=== PATIENT | female | born 1955 | race Caucasian/White ===

== ENCOUNTER 2018-06-11 12:23 | Inpatient (IN) | payer BC, SELFPAY ==
[2018-06-11] VITALS (20 sets, daily range): BP systolic 114–159; BP diastolic 65–109; PULSE 85–106; RESP 17–29; TEMP 36.4–37; O2SAT 92–100; BMI 25.7
--- NOTE | 2018-06-11 12:37 | DI.RAD.S_ITS ---
PROCEDURE: XR CHEST 1V INDICATIONS: sob TECHNIQUE: One view of the chest was acquired. COMPARISON: [facility], , CHEST 1 VIEW, 03/21/2017, 6:00. FINDINGS: Surgical changes and devices: None. Lungs and pleura: Previously seen left apical pneumothorax has resolved in the interim. However, there is developing interstitial and alveolar prominence within the perihilar regions of the lung bases. No lobar consolidation or large effusion is evident. Mediastinum: Mediastinal contours appear normal. Heart size is normal. Bones and chest wall: No suspicious bony lesions. Overlying soft tissues appear unremarkable. IMPRESSION: 1. Increasing infrahilar densities is suspicious for pneumonia versus pulmonary edema. Please correlate clinically. 2. Left apical pneumothorax appears to have resolved. Dictated by: Jamaal Burris M.D. on 06/11/2018 at 11:52 Approved by: Jamaal Burris M.D. on 06/11/2018 at 11:57
--- NOTE | 2018-06-11 12:39 | PC.NURSE ---
Pt brought from triage to room 4. Sat 74% on room air. 100% non rebreather placed.
--- NOTE | 2018-06-11 13:03 | PC.NURSE ---
Pt denies lower extremity pain / swelling. Denies chest pain/arm pain/jaw pain. Denies nausea / vomiting. states no h/o hypercoagulopathy or PE/DVT for self or family. Weaned to 4L nc. RR continues @ 28, sat 90%. Increased to 6L NC. States she feels more comfortable.
[2018-06-11 13:09] LABS: Add Manual Diff / Slide Review NO; Basophils Absolute Auto 100 /uL (0-100); Eosinophils Absolute Auto 400 /uL (0-450); Eosinophils Percent Auto 3.4 % (2-4); Hematocrit 38.7 % (36-46); Hemoglobin 12.9 g/dL (12.0-16.0); Lymphocytes Absolute Auto 1600 /uL (1100-4500); Lymphocytes Percent Auto 12.6 % (25-40); Mean Corpuscular HGB Conc 33.4 % (30-36); Mean Corpuscular Hemoglobin 34.6 PG (26-34); Mean Corpuscular Volume 103.6 fL (80-100); Monocytes Absolute Auto 1100 /uL (0-900); Neutrophils Absolute Auto 9200 /uL (1500-7000); Platelet Count 442 X10^3/uL (150-400); Red Blood Cell Count 3.74 X10^6/uL (4.0-5.2); Red Cell Distribution Width 13.7 % (11.6-14.8); White Blood Cell Count 12.4 X10^3/uL (4.5-11.0)
[2018-06-11 13:25] LABS: Alanine Aminotransferase 16 IU/L (9-52); Albumin 4.2 g/dL (3.5-5.0); Albumin Globulin Ratio 1.1 (1.0-2.8); Alkaline Phosphatase 80 U/L (38-126); Aspartate Aminotransferase 48 IU/L (14-36); BUN Creatinine Ratio 15.7 (6-22); Bilirubin Total 0.6 mg/dL (0.2-1.3); Blood Urea Nitrogen 11 mg/dL (7-17); Calcium 9.1 mg/dL (8.4-10.2); Carbon Dioxide 24 mmol/L (22-32); Chloride 100 mmol/L (98-107); Creatine Kinase 25 U/L (30-135); Estimated Glomerular Filt Rate > 60.0 mL/min (>60); Globulin 3.7 g/dL (1.7-4.1); Glucose 104 mg/dL (80-110); HEMOLYSIS < 15 (0-50); Potassium 4.1 mmol/L (3.4-5.1); Sodium 135 mmol/L (137-145); Total Protein 7.9 g/dL (6.3-8.2)
[2018-06-11 13:26] LABS: Lactate (Lactic Acid) 1.3 mmol/L (0.7-2.1)
--- NOTE | 2018-06-11 13:28 | ED.SOB ---
HPI - SOB/Dyspnea General Chief Complaint: Shortness of Breath/Dyspnea Stated Complaint: says hard time breathing x5 days Time Seen by Provider: 06/11/18 13:26 Source: patient and family Mode of arrival: ambulatory Limitations: no limitations History of Present Illness This is a 63-year-old female comes to the emergency department with complaint of shortness of breath. Patient states symptoms have been going on for about 5 days maybe a little bit longer. She states sort of sudden onset. She states normally she walks up and down the stairs in her home which are full flight about 14 times a day. She states today she has to stop at the landing to try to recover and it takes a while. Patient denies any chest pain, she denies any syncope. No lightheadedness. No diarrhea or constipation. She has had a little dysuria and urgency today which just started. She denies any swelling in her lower extremities. She does take blood pressure medication, she takes Estratest as well as Wellbutrin which she started recently for tobacco cessation. She has been smoking about 2 cigarettes a day for the last 6 weeks and stop smoking any cigarettes for 5 days ago. She denies any past family history of cardiac, pulmonary, embolic disease. Related Data Home Medications Medication Instructions Recorded Confirmed acetaminophen 1 dose PO PRN PRN 06/11/18 06/11/18 amlodipine [Norvasc] 5 mg PO DAILY 06/11/18 06/11/18 estrogens-methyltestosterone 1 tab PO DAILY 06/11/18 06/11/18 [Covaryx H.S.] hydrocodone-acetaminophen 0.5 - 1 tab PO Q8H PRN 06/11/18 06/11/18 Previous Rx's Medication Instructions Recorded atenolol 50 mg tablet 50 mg PO DAILY #90 tab 08/24/17 ipratropium bromide 17 1 puff INHALATION QID PRN #38.7 08/24/17 mcg/actuation HFA aerosol inhaler gram bupropion HCl 100 mg tablet 100 mg PO BID #180 tab 01/23/18 Allergies Allergy/AdvReac Type Severity Reaction Status Date / Time Penicillins [PENICILLINS] Allergy Unknown Verified 06/11/18 12:37 aspirin [ASPIRIN] AdvReac Mild GI Verified 06/11/18 12:37 TEGADERM Allergy Mild SKIN Uncoded 01/23/18 16:28 REDNESS PAIN CONTRACT Allergy Unknown Uncoded 01/23/18 16:28 Review of Systems Review of Systems ROS Unobtainable: All systems reviewed & are unremarkable except as noted in HPI and below Constitutional Denies chills, Denies fever(s), Denies lethargy and Denies weakness Cardiovascular Denies chest pain, Denies syncope, Denies pedal edema, Denies edema, Denies irregular heart rhythm, Denies lightheadedness, Denies radiating jaw, neck or arm pain, Denies palpitations, Reports dyspnea, Reports dyspnea on exertion and Denies orthopnea Respiratory Denies change in phlegm color, Denies chest congestion, Denies cough, Denies excessive phlegm production, Denies pain on inspiration, Denies pain with cough, Reports dyspnea, Reports dyspnea on exertion and Denies wheezing Gastrointestinal Gastrointestinal: Denies abdominal pain, Denies change in bowel habits, Denies diarrhea, Denies nausea and Denies vomiting Genitourinary Denies hematuria, Reports urinary frequency, Reports dysuria, Denies flank pain, Denies urinary incontinence and Reports urinary urgency Musculoskeletal Denies back pain Neurologic Denies syncope and Denies weakness Endocrine Denies palpitations Allergic/Immunologic Denies wheezing [facility] Medical History Pulmonary fibrosis (Suspected) Chronic obstructive pulmonary disease (Chronic 10/29/13) Hypertension (Chronic ~2003) Hyperlipidemia with target LDL less than 100 (Chronic 10/29/13) Menopause present (Chronic 10/29/13) Lumbar back pain (Chronic) Degeneration of intervertebral disc of lumbar region (Chronic 03/23/15) Tobacco use disorder (Chronic 02/24/11) Chronic back pain (Chronic ~1999) Headache (Chronic ~1989) Migraines (Chronic ~1989) Pneumothorax (Chronic ~03/20/17) Surgical History Anesthesia (Resolved) History of hysterectomy, supracervical (Resolved ~2004) Social History Smoking Status: Current every day smoker Social History household members: spouse Smoking Status: Former smoker Exam Narrative Exam Narrative: GEN: well nourished, well appearing female, alert and oriented x 3, patient appears to be in mild distress. HEENT: Atraumatic, pupils are equal round reactive to light, extraocular movements are intact, nares are clear, Throat is clear without any exudates, erythema, tonsillar enlargement or uvular deviation HEART: Regular rate and rhythm without murmur, clicks, rubs. Pulses are equal in upper and lower extremities LUNGS:Lungs show breath sounds equal bilaterally, no wheezes, positive bilateral rales in both bases, no crackles, chest moves symmetrically, no tachypnea, no accessory muscle use while sitting in bed. ABD:bowel sounds normal, soft, non-tender, no guarding, rebound, rigidity, no masses noted, no hepatosplenomegaly :No CVA tenderness MSCL: Non-tender, no muscle atrophy, muscles strength 5/5 upper and lower extremities, full range of motion, normal gait NEURO:CN 2-12 intact, sensation normal Initial Vital Signs Initial Vital Signs: Vital Signs Pulse Oximetry 100 06/11/18 12:40 Course Orders Ordered: ED Orders 06/11/18 12:37 Consult to Respiratory Therapy Evaluate & Treat XR chest 1V Stat 06/11/18 12:38 EKG-12 Lead Stat 06/11/18 12:55 BNP [B Type Natriuretic Peptide] Stat Complete Blood Count AUTO DIFF Stat Comprehensive Metabolic Panel Stat Lactate (Lactic Acid) Stat Troponin & CK Cardiac Panel Stat 06/11/18 13:30 FLU A and B [Influenza A and B by PCR Rapid] Stat 06/11/18 14:42 CT angio chest PE protocol Stat 06/11/18 15:41 Urine Culture Stat Urine Microscopic Stat 06/11/18 17:43 Education, smoking cessation ONGOING Acetaminophen (Tylenol) 650 mg PO Q6HR PRN PRN Reason: As Needed for Fever/Mild Pain Hydrocodone Bitart/Acetaminophen ([place] 10/325) 1 tab PO Q4HR PRN PRN Reason: Pain, Moderate (4-6) Albuterol/Ipratropium (Duoneb) 3 ml INH [id number] GLENN Atenolol (Tenormin) 50 mg PO DAILY GLENN Bisacodyl (Dulcolax) 10 mg PO DAILY PRN PRN Reason: Constipation Bupropion HCl (Welbutrin) 100 mg PO BID GLENN Enoxaparin Sodium (Lovenox) 40 mg SUBCUT DAILY [facility] Dextrose/Sodium Chloride (Dextrose 5%-0.45% Ns) 1,000 mls @ 80 mls/hr IV CONT GLENN Last Admin: 06/11/18 18:56 Dose: 80 mls/hr Levofloxacin (Levaquin) 750 mg in 150 mls @ 100 mls/hr IV Q24H [facility] Ipratropium [place] (Atrovent Hfa) 1 puff INH QID PRN PRN Reason: shortness of breath or wheezing Methylprednisolone (Solu-Medrol 125 Mg Vial) 60 mg IV Q12H [facility] Stop: 06/16/18 17:42 Last Admin: 06/11/18 18:56 Dose: 60 mg Non-Formulary Medication (Estrogens-Methyltestosterone [Covaryx H.S.]) 1 tab PO DAILY [facility] Zolpidem Tartrate (Ambien) 5 mg PO BEDTIME PRN PRN Reason: Sleep Discontinued Medications Hydrocodone Bitart/Acetaminophen ([place] 10/325) 1 tab PO NOW ONE Stop: 06/11/18 16:08 Last Admin: 06/11/18 17:00 Dose: 1 tab Levofloxacin (Levaquin) 750 mg in 150 mls @ 100 mls/hr IV NOW ONE Stop: 06/11/18 17:36 Last Infusion: 06/11/18 17:26 Dose: 100 mls/hr Infusion: 06/11/18 17:25 Dose: 100 mls/hr Admin: 06/11/18 16:55 Dose: 100 mls/hr Vital Signs - 8 hr 06/11/18 12:40 06/11/18 12:41 06/11/18 12:45 Temperature Pulse Rate 88 86 Respiratory Rate 25 H 27 H Blood Pressure Blood Pressure [Left Arm] 150/87 H 150/87 H Pulse Oximetry 100 100 100 06/11/18 12:58 06/11/18 13:05 06/11/18 13:15 Temperature Pulse Rate 90 86 Respiratory Rate 28 H 28 H 24 Blood Pressure Blood Pressure [Left Arm] 114/65 123/65 Pulse Oximetry 94 92 93 06/11/18 13:30 06/11/18 13:31 06/11/18 14:09 Temperature Pulse Rate 86 86 Respiratory Rate 17 27 H Blood Pressure Blood Pressure [Left Arm] 141/79 H 118/87 Pulse Oximetry 93 92 95 06/11/18 14:15 06/11/18 14:30 06/11/18 15:30 Temperature Pulse Rate 85 89 95 H Respiratory Rate 26 H 23 23 Blood Pressure Blood Pressure [Left Arm] 120/71 123/75 Pulse Oximetry 93 92 95 06/11/18 16:00 06/11/18 16:30 06/11/18 17:00 Temperature Pulse Rate 92 H 98 H 90 Respiratory Rate 29 H 29 H 18 Blood Pressure Blood Pressure [Left Arm] Pulse Oximetry 93 94 94 06/11/18 17:19 06/11/18 17:40 Temperature 98.6 F Pulse Rate 96 H 106 H Respiratory Rate 20 20 Blood Pressure 159/109 H Blood Pressure [Left Arm] Pulse Oximetry 94 93 MDM - SOB/Dyspnea Lab Data Attestation: I reviewed the patient's lab results. Result diagrams: 06/11/18 12:55 06/11/18 12:55 Lab Results 06/11/18 06/11/18 06/11/18 Range/Units 12:55 12:55 12:55 WBC 12.4 H (4.5-11.0) X10^3/uL RBC 3.74 L (4.0-5.2) X10^6/uL Hgb 12.9 (12.0-16.0) g/dL Hct 38.7 (36-46) % MCV 103.6 H (80-100) fL MCH 34.6 H (26-34) PG MCHC 33.4 (30-36) % RDW 13.7 (11.6-14.8) % Plt Count 442 H (150-400) X10^3/uL Neut % (Auto) 74.0 (50-75) % Lymph % (Auto) 12.6 L (25-40) % [place] % (Auto) 9.0 (3-14) % Eos % (Auto) 3.4 (2-4) % Baso % (Auto) 1.0 (0-2) % Neut # (Auto) 9200 H (5281-7818) /uL Lymph # (Auto) 1600 (7855-7162) /uL [place] # (Auto) 1100 H (0-900) /uL Eos # (Auto) 400 (0-450) /uL Baso # (Auto) 100 (0-100) /uL Sodium 135 L (137-145) mmol/L Potassium 4.1 (3.4-5.1) mmol/L Chloride 100 (98-107) mmol/L Carbon Dioxide 24 (22-32) mmol/L BUN 11 (7-17) mg/dL Creatinine 0.70 (0.52-1.04) mg/dL Estimated GFR > 60.0 (>60) mL/min BUN/Creatinine Ratio 15.7 (6-22) Glucose 104 (80-110) mg/dL Lactate 1.3 (0.7-2.1) mmol/L Calcium 9.1 (8.4-10.2) mg/dL Total Bilirubin 0.6 (0.2-1.3) mg/dL AST 48 H (14-36) IU/L ALT 16 (9-52) IU/L Alkaline Phosphatase 80 (38-126) U/L Total Creatine Kinase (30-135) U/L CK-MB (CK-2) CK-MB (CK-2) Rel Index Troponin I (0.01-0.034) ng/mL B-Natriuretic Peptide (<100) Total Protein 7.9 (6.3-8.2) g/dL Albumin 4.2 (3.5-5.0) g/dL Globulin 3.7 (1.7-4.1) g/dL Albumin/Globulin Ratio 1.1 (1.0-2.8) Urine RBC (0-5/HPF) Urine WBC (0-5/HPF) Urine Bacteria (None) Ur Culture Indicated? Influenza A & B (PCR) (Negative) 06/11/18 06/11/18 06/11/18 Range/Units 12:55 12:55 13:30 WBC (4.5-11.0) X10^3/uL RBC (4.0-5.2) X10^6/uL Hgb (12.0-16.0) g/dL Hct (36-46) % MCV (80-100) fL MCH (26-34) PG MCHC (30-36) % RDW (11.6-14.8) % Plt Count (150-400) X10^3/uL Neut % (Auto) (50-75) % Lymph % (Auto) (25-40) % [place] % (Auto) (3-14) % Eos % (Auto) (2-4) % Baso % (Auto) (0-2) % Neut # (Auto) (9038-9697) /uL Lymph # (Auto) (0835-2955) /uL [place] # (Auto) (0-900) /uL Eos # (Auto) (0-450) /uL Baso # (Auto) (0-100) /uL Sodium (137-145) mmol/L Potassium (3.4-5.1) mmol/L Chloride (98-107) mmol/L Carbon Dioxide (22-32) mmol/L BUN (7-17) mg/dL Creatinine (0.52-1.04) mg/dL Estimated GFR (>60) mL/min BUN/Creatinine Ratio (6-22) Glucose (80-110) mg/dL Lactate (0.7-2.1) mmol/L Calcium (8.4-10.2) mg/dL Total Bilirubin (0.2-1.3) mg/dL AST (14-36) IU/L ALT (9-52) IU/L Alkaline Phosphatase (38-126) U/L Total Creatine Kinase 25 L (30-135) U/L CK-MB (CK-2) TNP CK-MB (CK-2) Rel Index TNP Troponin I < 0.012 (0.01-0.034) ng/mL B-Natriuretic Peptide < 100 (<100) Total Protein (6.3-8.2) g/dL Albumin (3.5-5.0) g/dL Globulin (1.7-4.1) g/dL Albumin/Globulin Ratio (1.0-2.8) Urine RBC (0-5/HPF) Urine WBC (0-5/HPF) Urine Bacteria (None) Ur Culture Indicated? Influenza A & B (PCR) Negative (Negative) 06/11/18 Range/Units 15:41 WBC (4.5-11.0) X10^3/uL RBC (4.0-5.2) X10^6/uL Hgb (12.0-16.0) g/dL Hct (36-46) % MCV (80-100) fL MCH (26-34) PG MCHC (30-36) % RDW (11.6-14.8) % Plt Count (150-400) X10^3/uL Neut % (Auto) (50-75) % Lymph % (Auto) (25-40) % [place] % (Auto) (3-14) % Eos % (Auto) (2-4) % Baso % (Auto) (0-2) % Neut # (Auto) (0726-9731) /uL Lymph # (Auto) (0618-3425) /uL [place] # (Auto) (0-900) /uL Eos # (Auto) (0-450) /uL Baso # (Auto) (0-100) /uL Sodium (137-145) mmol/L Potassium (3.4-5.1) mmol/L Chloride (98-107) mmol/L Carbon Dioxide (22-32) mmol/L BUN (7-17) mg/dL Creatinine (0.52-1.04) mg/dL Estimated GFR (>60) mL/min BUN/Creatinine Ratio (6-22) Glucose (80-110) mg/dL Lactate (0.7-2.1) mmol/L Calcium (8.4-10.2) mg/dL Total Bilirubin (0.2-1.3) mg/dL AST (14-36) IU/L ALT (9-52) IU/L Alkaline Phosphatase (38-126) U/L Total Creatine Kinase (30-135) U/L CK-MB (CK-2) CK-MB (CK-2) Rel Index Troponin I (0.01-0.034) ng/mL B-Natriuretic Peptide (<100) Total Protein (6.3-8.2) g/dL Albumin (3.5-5.0) g/dL Globulin (1.7-4.1) g/dL Albumin/Globulin Ratio (1.0-2.8) Urine RBC 5-10/hpf H (0-5/HPF) Urine WBC 5-10/hpf H (0-5/HPF) Urine Bacteria Moderate (10-30) H (None) Ur Culture Indicated? Specimen cultured Influenza A & B (PCR) (Negative) Imaging Data Chest x-ray: Radiologist's impression: [address] [address] XRay Report Signed Patient: Corina Thompson#: [id number] : 1955cct:[id number] Age/Sex: 63 / FDate of Service: 06/11/18 Loc: ED Accession Number: [id number] Procedure: XR chest 1V Ordering Provider: Chantell Pavon D.O. PROCEDURE: XR CHEST 1V INDICATIONS: sob TECHNIQUE: One view of the chest was acquired. COMPARISON: [facility], CR, CHEST 1 VIEW, 03/21/2017, 6:00. FINDINGS: Surgical changes and devices: None. Lungs and pleura: Previously seen left apical pneumothorax has resolved in the interim. However, there is developing interstitial and alveolar prominence within the perihilar regions of the lung bases. No lobar consolidation or large effusion is evident. Mediastinum: Mediastinal contours appear normal. Heart size is normal. Bones and chest wall: No suspicious bony lesions. Overlying soft tissues appear unremarkable. IMPRESSION: 1. Increasing infrahilar densities is suspicious for pneumonia versus pulmonary edema. Please correlate clinically. 2. Left apical pneumothorax appears to have resolved. Dictated by: Jamaal Burris M.D. on 06/11/2018 at 11:52 Approved by: Jamaal Burris M.D. on 06/11/2018 at 11:57 CTA Chest: Radiologist's impression: Corina Thompson 63 F 1955 [place] [address] CT Scan Report Signed Patient: JayCorina R#: [id number] : 7Acct:[id number] Age/Sex: 63 / FDate of Service: 06/11/18 Loc: ED Accession Number: [id number] Procedure: CT angio chest PE protocol Ordering Provider: Chantell Pavon D.O. PROCEDURE: CT ANGIO CHEST PE PROTOCOL INDICATIONS: hypoxia, sudden onset sob x 5 days, crackles bases TECHNIQUE: After the administration of intravenous contrast, 2 mm thick sections acquired from the pulmonary apices to the posterior costophrenic angles. 3-dimensional maximum intensity projection (MIP) coronal and sagittal reformats were then acquired through the thorax. For radiation dose reduction, the following was used: automated exposure control, adjustment of mA and/or kV according to patient size. COMPARISON: [facility], CT, THORAX WITH CONTRAST, 03/24/2017, 13:15. [facility], CT, ABDOMEN/PELVIS WITH CONTRAST, 07/02/2015, 13:20. [facility], CR, XR CHEST 1V, 06/11/2018, 12:42. FINDINGS: Image quality: Excellent. Pulmonary arteries: Pulmonary arteries are normal in size, and demonstrate no intraluminal filling defects to suggest central pulmonary embolism. Lungs and pleura: Include groundglass opacities with basilar predominance noted. Interstitial thickening noted in the lung bases bilaterally. Bibasilar alveolar opacities. No pleural effusions or pneumothorax. Central and peripheral airways are patent. Mediastinum: Heart size is normal, without pericardial effusion. Atherosclerotic calcifications are noted in the aorta, great vessels and the coronary vasculature. No mediastinal or hilar adenopathy. Thoracic aorta is normal in caliber and enhancement. The left vertebral artery arises from the aortic arch. Esophagus is normal in caliber, without hiatal hernia. Bones and chest wall: No suspicious bony lesions. Ribs and thoracic spine appear intact throughout. Thyroid gland is within normal limits the visualized. No axillary or supraclavicular adenopathy. Abdomen: Visualized upper abdominal solid organs appear normal in the early arterial phase of enhancement. IMPRESSION: 1. No pulmonary embolus. 2. Bilateral lung groundglass opacities, interstitial thickening and bibasilar alveolar opacities. Findings may be related to pulmonary edema versus atypical pneumonia. Dictated by: Lisa Cunningham MD, PhD on 06/11/2018 at 15:06 Approved by: Lisa Cunningham MD, PhD on 06/11/2018 at 15:11 ECG Data Attestation: I personally reviewed and interpreted this ECG as follows: Interpretation: Sinus rhythm with a rate 85 P are interval 170 QRS of 90 and QTC of 386. No ST elevation or depression. MDM Narrative Medical decision making narrative: Patient has hypoxia on exam initially when she arrives and dropped down to into the 70s while ambulating. Patient's chest x-ray shows possible pneumonia versus pulmonary edema her white count is elevated at 12.4. She does not have any anemia, electrolytes are normal except for a 135 sodium, she has an AST that is 48, total CK is 25 with a troponin that is negative, BNP is less than 100. Patient does have rales bilaterally in her bases. No wheezing on exam. Influenza was negative. patient did have CTA ordered as she described her shortness of breath as sudden in onset. PE protocol shows no pulmonary emboli with ground-glass opacities with basilar predominance, some interstitial thickening in the lung bases bilaterally and some bibasilar alveolar opacities. Of her radiology read could be related to pulmonary edema versus atypical pneumonia. I suspect patient has more of an atypical pneumonia was given a dose of antibiotics. Spoke with Dr. Pang who will evaluate the patient and plan for observation since she is requiring oxygen. Discharge Plan Departure Patient Disposition: Admitted as Observation Clinical Impression: Pneumonia, Tobacco use disorder Discharge Date/Time: 06/11/18 17:27 Interventions: ED Discharge Assessment Last Done: 06/11/18 17:14 Admit Date/Time: 06/11/18 16:57 Admit Provider: Prasad Pang
[2018-06-11 13:37] LABS: Troponin I < 0.012 ng/mL (0.01-0.034)
--- NOTE | 2018-06-11 13:37 | ED_ITS ---
HPI - SOB/Dyspnea General Chief Complaint: Shortness of Breath/Dyspnea Stated Complaint: says hard time breathing x5 days Time Seen by Provider: 06/11/18 13:26 Source: patient and family Mode of arrival: ambulatory Limitations: no limitations History of Present Illness This is a 63-year-old female comes to the emergency department with complaint of shortness of breath. Patient states symptoms have been going on for about 5 days maybe a little bit longer. She states sort of sudden onset. She states normally she walks up and down the stairs in her home which are full flight about 14 times a day. She states today she has to stop at the landing to try to recover and it takes a while. Patient denies any chest pain, she denies any s yncope. No lightheadedness. No diarrhea or constipation. She has had a little dysuria and urgency today which just started. She denies any swelling in her lower extremities. She does take blood pressure medication, she takes Estratest as well as Wellbutrin which she started recently for tobacco cessation. She has been smoking about 2 cigarettes a day for the last 6 weeks and stop smoking any cigarettes for 5 days ago. She denies any past family history of cardiac, pulmonary, embolic disease. Related Data Home Medications Medication Instructions Recorded Confirmed acetaminophen 1 dose PO PRN PRN 06/11/18 06/11/18 amlodipine [Norvasc] 5 mg PO DAILY 06/11/18 06/11/18 estrogens-methyltestosterone 1 tab PO DAILY 06/11/18 06/11/18 [Covaryx H.S.] hydrocodone-acetaminophen 0.5 - 1 tab PO Q8H PRN 06/11/18 06/11/18 Previous Rx's Medication Instructions Recorded atenolol 50 mg tablet 50 mg PO DAILY #90 tab 08/24/17 ipratropium bromide 17 1 puff INHALATION QID PRN #38.7 08/24/17 mcg/actuation HFA aerosol inhaler gram bupropion HCl 100 mg tablet 100 mg PO BID #180 tab 01/23/18 Allergies Allergy/AdvReac Type Severity Reaction Status Date / Time Penicillins [PENICILLINS] Allergy Unknown Verified 06/11/18 12:37 aspirin [ASPIRIN] AdvReac Mild GI Verified 06/11/18 12:37 TEGADERM Allergy Mild SKIN Uncoded 01/23/18 16:28 REDNESS PAIN CONTRACT Allergy Unknown Uncoded 01/23/18 16:28 Review of Systems Review of Systems ROS Unobtainable: All systems reviewed & are unremarkable except as noted in HPI and below Constitutional Denies chills, Denies fever(s), Denies lethargy and Denies weakness Cardiovascular Denies chest pain, Denies syncope, Denies pedal edema, Denies edema, Denies irregular heart rhythm, Denies lightheadedness, Denies radiating jaw, neck or arm pain, Denies palpitations, Reports dyspnea, Reports dyspnea on exertion and Denies orthopnea Respiratory Denies change in phlegm color, Denies chest congestion, Denies cough, Denies excessive phlegm production, Denies pain on inspiration, Denies pain with cough, Reports dyspnea, Reports dyspnea on exertion and Denies wheezing Gastrointestinal Gastrointestinal: Denies abdominal pain, Denies change in bowel habits, Denies diarrhea, Denies nausea and Denies vomiting Genitourinary Denies hematuria, Reports urinary frequency, Reports dysuria, Denies flank pain, Denies urinary incontinence and Reports urinary urgency Musculoskeletal Denies back pain Neurologic Denies syncope and Denies weakness Endocrine Denies palpitations Allergic/Immunologic Denies wheezing FOR[facility], [facility] Medical History Pulmonary fibrosis (Suspected) Chronic obstructive pulmonary disease (Chronic 10/29/13) Hypertension (Chronic ~2003) Hyperlipidemia with target LDL less than 100 (Chronic 10/29/13) Menopause present (Chronic 10/29/13) Lumbar back pain (Chronic) Degeneration of intervertebral disc of lumbar region (Chronic 03/23/15) Tobacco use disorder (Chronic 02/24/11) Chronic back pain (Chronic ~1999) Headache (Chronic ~1989) Migraines (Chronic ~1989) Pneumothorax (Chronic ~03/20/17) Surgical History Anesthesia (Resolved) History of hysterectomy, supracervical (Resolved ~2004) Social History Smoking Status: Current every day smoker Social History household members: spouse Smoking Status: Former smoker Exam Narrative Exam Narrative: GEN: well nourished, well appearing female, alert and oriented x 3, patient appears to be in mild distress. HEENT: Atraumatic, pupils are equal round reactive to light, extraocular movements are intact, nares are clear, Throat is clear without any exudates, erythema, tonsillar enlargement or uvular deviation HEART: Regular rate and rhythm without murmur, clicks, rubs. Pulses are equal in upper and lower extremities LUNGS:Lungs show breath sounds equal bilaterally, no wheezes, positive bilateral rales in both bases, no crackles, chest moves symmetrically, no tachypnea, no accessory muscle use while sitting in bed. ABD:bowel sounds normal, soft, non-tender, no guarding, rebound, rigidity, no masses noted, no hepatosplenomegaly :No CVA tenderness MSCL: Non-tender, no muscle atrophy, muscles strength 5/5 upper and lower extremities, full range of motion, normal gait NEURO:CN 2-12 intact, sensation normal Initial Vital Signs Initial Vital Signs: Vital Signs Pulse Oximetry 100 06/11/18 12:40 Course Orders Ordered: ED Orders 06/11/18 12:37 Consult to Respiratory Therapy Evaluate & Treat XR chest 1V Stat 06/11/18 12:38 EKG-12 Lead Stat 06/11/18 12:55 BNP [B Type Natriuretic Peptide] Stat Complete Blood Count AUTO DIFF Stat Comprehensive Metabolic Panel Stat Lactate (Lactic Acid) Stat Troponin & CK Cardiac Panel Stat 06/11/18 13:30 FLU A and B [Influenza A and B by PCR Rapid] Stat 06/11/18 14:42 CT angio chest PE protocol Stat 06/11/18 15:41 Urine Culture Stat Urine Microscopic Stat 06/11/18 17:43 Education, smoking cessation ONGOING Acetaminophen (Tylenol) 650 mg PO Q6HR PRN PRN Reason: As Needed for Fever/Mild Pain Hydrocodone Bitart/Acetaminophen ([place] 10/325) 1 tab PO Q4HR PRN PRN Reason: Pain, Moderate (4-6) Albuterol/Ipratropium (Duoneb) 3 ml INH [id number] GLENN Atenolol (Tenormin) 50 mg PO DAILY GLENN Bisacodyl (Dulcolax) 10 mg PO DAILY PRN PRN Reason: Constipation Bupropion HCl (Welbutrin) 100 mg PO BID GLENN Enoxaparin Sodium (Lovenox) 40 mg SUBCUT DAILY [facility] Dextrose/Sodium Chloride (Dextrose 5%-0.45% Ns) 1,000 mls @ 80 mls/hr IV CONT [facility] Last Admin: 06/11/18 18:56 Dose: 80 mls/hr Levofloxacin (Levaquin) 750 mg in 150 mls @ 100 mls/hr IV Q24H [facility] Ipratropium [place] (Atrovent Hfa) 1 puff INH QID PRN PRN Reason: shortness of breath or wheezing Methylprednisolone (Solu-Medrol 125 Mg Vial) 60 mg IV Q12H [facility] Stop: 06/16/18 17:42 Last Admin: 06/11/18 18:56 Dose: 60 mg Non-Formulary Medication (Estrogens-Methyltestosterone [Covaryx H.S.]) 1 tab PO DAILY [facility] Zolpidem Tartrate (Ambien) 5 mg PO BEDTIME PRN PRN Reason: Sleep Discontinued Medications Hydrocodone Bitart/Acetaminophen ([place] 10/325) 1 tab PO NOW ONE Stop: 06/11/18 16:08 Last Admin: 06/11/18 17:00 Dose: 1 tab Levofloxacin (Levaquin) 750 mg in 150 mls @ 100 mls/hr IV NOW ONE Stop: 06/11/18 17:36 Last Infusion: 06/11/18 17:26 Dose: 100 mls/hr Infusion: 06/11/18 17:25 Dose: 100 mls/hr Admin: 06/11/18 16:55 Dose: 100 mls/hr Vital Signs - 8 hr 06/11/18 12:40 06/11/18 12:41 06/11/18 12:45 Temperature Pulse Rate 88 86 Respiratory Rate 25 H 27 H Blood Pressure Blood Pressure [Left Arm] 150/87 H 150/87 H Pulse Oximetry 100 100 100 06/11/18 12:58 06/11/18 13:05 06/11/18 13:15 Temperature Pulse Rate 90 86 Respiratory Rate 28 H 28 H 24 Blood Pressure Blood Pressure [Left Arm] 114/65 123/65 Pulse Oximetry 94 92 93 06/11/18 13:30 06/11/18 13:31 06/11/18 14:09 Temperature Pulse Rate 86 86 Respiratory Rate 17 27 H Blood Pressure Blood Pressure [Left Arm] 141/79 H 118/87 Pulse Oximetry 93 92 95 04/01/19 14:15 06/11/18 14:30 06/11/18 15:30 Temperature Pulse Rate 85 89 95 H Respiratory Rate 26 H 23 23 Blood Pressure Blood Pressure [Left Arm] 120/71 123/75 Pulse Oximetry 93 92 95 06/11/18 16:00 06/11/18 16:30 06/11/18 17:00 Temperature Pulse Rate 92 H 98 H 90 Respiratory Rate 29 H 29 H 18 Blood Pressure Blood Pressure [Left Arm] Pulse Oximetry 93 94 94 06/11/18 17:19 06/11/18 17:40 Temperature 98.6 F Pulse Rate 96 H 106 H Respiratory Rate 20 20 Blood Pressure 159/109 H Blood Pressure [Left Arm] Pulse Oximetry 94 93 MDM - SOB/Dyspnea Lab Data Attestation: I reviewed the patient's lab results. Result diagrams: 06/11/18 12:55 06/11/18 12:55 Lab Results 06/11/18 06/11/18 06/11/18 Range/Units 12:55 12:55 12:55 WBC 12.4 H (4.5-11.0) X10^3/uL RBC 3.74 L (4.0-5.2) X10^6/uL Hgb 12.9 (12.0-16.0) g/dL Hct 38.7 (36-46) % MCV 103.6 H (80-100) fL MCH 34.6 H (26-34) PG MCHC 33.4 (30-36) % RDW 13.7 (11.6-14.8) % Plt Count 442 H (150-400) X10^3/uL Neut % (Auto) 74.0 (50-75) % Lymph % (Auto) 12.6 L (25-40) % [place] % (Auto) 9.0 (3-14) % Eos % (Auto) 3.4 (2-4) % Baso % (Auto) 1.0 (0-2) % Neut # (Auto) 9200 H (0967-1648) /uL Lymph # (Auto) 1600 (1682-0520) /uL [place] # (Auto) 1100 H (0-900) /uL Eos # (Auto) 400 (0-450) /uL Baso # (Auto) 100 (0-100) /uL Sodium 135 L (137-145) mmol/L Potassium 4.1 (3.4-5.1) mmol/L Chloride 100 (98-107) mmol/L Carbon Dioxide 24 (22-32) mmol/L BUN 11 (7-17) mg/dL Creatinine 0.70 (0.52-1.04) mg/dL Estimated GFR > 60.0 (>60) mL/min BUN/Creatinine Ratio 15.7 (6-22) Glucose 104 (80-110) mg/dL Lactate 1.3 (0.7-2.1) mmol/L Calcium 9.1 (8.4-10.2) mg/dL Total Bilirubin 0.6 (0.2-1.3) mg/dL AST 48 H (14-36) IU/L ALT 16 (9-52) IU/L Alkaline Phosphatase 80 (38-126) U/L Total Creatine Kinase (30-135) U/L CK-MB (CK-2) CK-MB (CK-2) Rel Index Troponin I (0.01-0.034) ng/mL B-Natriuretic Peptide (<100) Total Protein 7.9 (6.3-8.2) g/dL Albumin 4.2 (3.5-5.0) g/dL Globulin 3.7 (1.7-4.1) g/dL Albumin/Globulin Ratio 1.1 (1.0-2.8) Urine RBC (0-5/HPF) Urine WBC (0-5/HPF) Urine Bacteria (None) Ur Culture Indicated? Influenza A & B (PCR) (Negative) 06/11/18 06/11/18 06/11/18 Range/Units 12:55 12:55 13:30 WBC (4.5-11.0) X10^3/uL RBC (4.0-5.2) X10^6/uL Hgb (12.0-16.0) g/dL Hct (36-46) % MCV (80-100) fL MCH (26-34) PG MCHC (30-36) % RDW (11.6-14.8) % Plt Count (150-400) X10^3/uL Neut % (Auto) (50-75) % Lymph % (Auto) (25-40) % [place] % (Auto) (3-14) % Eos % (Auto) (2-4) % Baso % (Auto) (0-2) % Neut # (Auto) (5995-2266) /uL Lymph # (Auto) (1912-2954) /uL [place] # (Auto) (0-900) /uL Eos # (Auto) (0-450) /uL Baso # (Auto) (0-100) /uL Sodium (137-145) mmol/L Potassium (3.4-5.1) mmol/L Chloride (98-107) mmol/L Carbon Dioxide (22-32) mmol/L BUN (7-17) mg/dL Creatinine (0.52-1.04) mg/dL Estimated GFR (>60) mL/min BUN/Creatinine Ratio (6-22) Glucose (80-110) mg/dL Lactate (0.7-2.1) mmol/L Calcium (8.4-10.2) mg/dL Total Bilirubin (0.2-1.3) mg/dL AST (14-36) IU/L ALT (9-52) IU/L Alkaline Phosphatase (38-126) U/L Total Creatine Kinase 25 L (30-135) U/L CK-MB (CK-2) TNP CK-MB (CK-2) Rel Index TNP Troponin I < 0.012 (0.01-0.034) ng/mL B-Natriuretic Peptide < 100 (<100) Total Protein (6.3-8.2) g/dL Albumin (3.5-5.0) g/dL Globulin (1.7-4.1) g/dL Albumin/Globulin Ratio (1.0-2.8) Urine RBC (0-5/HPF) Urine WBC (0-5/HPF) Urine Bacteria (None) Ur Culture Indicated? Influenza A & B (PCR) Negative (Negative) 06/11/18 Range/Units 15:41 WBC (4.5-11.0) X10^3/uL RBC (4.0-5.2) X10^6/uL Hgb (12.0-16.0) g/dL Hct (36-46) % MCV (80-100) fL MCH (26-34) PG MCHC (30-36) % RDW (11.6-14.8) % Plt Count (150-400) X10^3/uL Neut % (Auto) (50-75) % Lymph % (Auto) (25-40) % [place] % (Auto) (3-14) % Eos % (Auto) (2-4) % Baso % (Auto) (0-2) % Neut # (Auto) (3154-8722) /uL Lymph # (Auto) (7997-7956) /uL [place] # (Auto) (0-900) /uL Eos # (Auto) (0-450) /uL Baso # (Auto) (0-100) /uL Sodium (137-145) mmol/L Potassium (3.4-5.1) mmol/L Chloride (98-107) mmol/L Carbon Dioxide (22-32) mmol/L BUN (7-17) mg/dL Creatinine (0.52-1.04) mg/dL Estimated GFR (>60) mL/min BUN/Creatinine Ratio (6-22) Glucose (80-110) mg/dL Lactate (0.7-2.1) mmol/L Calcium (8.4-10.2) mg/dL Total Bilirubin (0.2-1.3) mg/dL AST (14-36) IU/L ALT (9-52) IU/L Alkaline Phosphatase (38-126) U/L Total Creatine Kinase (30-135) U/L CK-MB (CK-2) CK-MB (CK-2) Rel Index Troponin I (0.01-0.034) ng/mL B-Natriuretic Peptide (<100) Total Protein (6.3-8.2) g/dL Albumin (3.5-5.0) g/dL Globulin (1.7-4.1) g/dL Albumin/Globulin Ratio (1.0-2.8) Urine RBC 5-10/hpf H (0-5/HPF) Urine WBC 5-10/hpf H (0-5/HPF) Urine Bacteria Moderate (10-30) H (None) Ur Culture Indicated? Specimen cultured Influenza A & B (PCR) (Negative) Imaging Data Chest x-ray: Radiologist's impression: [address] [address] XRay Report Signed Patient: Corina ThompsonR#: [id number] : [id number]:[id number] Age/Sex: 63 / FDate of Service: 06/11/18 Loc: ED Accession Number: [id number] Procedure: XR chest 1V Ordering Provider: Chantell Pavon D.O. PROCEDURE: XR CHEST 1V INDICATIONS: sob TECHNIQUE: One view of the chest was acquired. COMPARISON: [facility], CR, CHEST 1 VIEW, 03/21/2017, 6:00. FINDINGS: Surgical changes and devices: None. Lungs and pleura: Previously seen left apical pneumothorax has resolved in the interim. However, there is developing interstitial and alveolar prominence within the perihilar regions of the lung bases. No lobar consolidation or large effusion is evident. Mediastinum: Mediastinal contours appear normal. Heart size is normal. Bones and chest wall: No suspicious bony lesions. Overlying soft tissues appear unremarkable. IMPRESSION: 1. Increasing infrahilar densities is suspicious for pneumonia versus pulmonary edema. Please correlate clinically. 2. Left apical pneumothorax appears to have resolved. Dictated by: Jamaal Burris M.D. on 06/11/2018 at 11:52 Approved by: Jamaal Burris M.D. on 06/11/2018 at 11:57 CTA Chest: Radiologist's impression: Corina Thompson 63 F 1955 [place] [address] CT Scan Report Signed Patient: Jay,Corina R#: [id number] : [id number]:[id number] Age/Sex: 63 / FDate of Service: 06/11/18 Loc: ED Accession Number: [id number] Procedure: CT angio chest PE protocol Ordering Provider: Chantell Pavon D.O. PROCEDURE: CT ANGIO CHEST PE PROTOCOL INDICATIONS: hypoxia, sudden onset sob x 5 days, crackles bases TECHNIQUE: After the administration of intravenous contrast, 2 mm thick sections acquired from the pulmonary apices to the posterior costophrenic angles. 3-dimensional maximum intensity projection (MIP) coronal and sagittal reformats were then acquired through the thorax. For radiation dose reduction, the following was used: automated exposure control, adjustment of mA and/or kV according to patient size. COMPARISON: [facility], CT, THORAX WITH CONTRAST, 03/24/2017, 13:15. [facility], CT, ABDOMEN/PELVIS WITH CONTRAST, 07/02/2015, 13:20. [facility], CR, XR CHEST 1V, 06/11/2018, 12:42. FINDINGS: Image quality: Excellent. Pulmonary arteries: Pulmonary arteries are normal in size, and demonstrate no intraluminal filling defects to suggest central pulmonary embolism. Lungs and pleura: Include groundglass opacities with basilar predominance noted. Interstitial thickening noted in the lung bases bilaterally. Bibasilar alveolar opacities. No pleural effusions or pneumothorax. Central and peripheral airways are patent. Mediastinum: Heart size is normal, without pericardial effusion. Atherosclerotic calcifications are noted in the aorta, great vessels and the coronary vasculature. No mediastinal or hilar adenopathy. Thoracic aorta is normal in caliber and enhancement. The left vertebral artery arises from the aortic arch. Esophagus is normal in caliber, without hiatal hernia. Bones and chest wall: No suspicious bony lesions. Ribs and thoracic spine appear intact throughout. Thyroid gland is within normal limits the visualized. No axillary or supraclavicular adenopathy. Abdomen: Visualized upper abdominal solid organs appear normal in the early arterial phase of enhancement. IMPRESSION: 1. No pulmonary embolus. 2. Bilateral lung groundglass opacities, interstitial thickening and bibasilar alveolar opacities. Findings may be related to pulmonary edema versus atypical pneumonia. Dictated by: Lisa Cunningham MD, PhD on 06/11/2018 at 15:06 Approved by: Lisa Cunningham MD, PhD on 06/11/2018 at 15:11 ECG Data Attestation: I personally reviewed and interpreted this ECG as follows: Interpretation: Sinus rhythm with a rate 85 P are interval 170 QRS of 90 and QTC of 386. No ST elevation or depression. MDM Narrative Medical decision making narrative: Patient has hypoxia on exam initially when she arrives and dropped down to into the 70s while ambulating. Patient's chest x-ray shows possible pneumonia versus pulmonary edema her white count is elevated at 12.4. She does not have any anemia, electrolytes are normal except for a 135 sodium, she has an AST that is 48, total CK is 25 with a troponin that is negative, BNP is less than 100. Patient does have rales bilaterally in her bases. No wheezing on exam. Influenza was negative. patient did have CTA ordered as she described her shortness of breath as sudden in onset. PE protocol shows no pulmonary emboli with ground-glass opacities with basilar predominance, some interstitial thickening in the lung bases bilaterally and some bibasilar alveolar opacities. Of her radiology read could be related to pulmonary edema versus atypical pneumonia. I suspect patient has more of an atypical pneumonia was given a dose of antibiotics. Spoke with Dr. Pang who will evaluate the patient and plan for observation since she is requiring oxygen. Discharge Plan Departure Patient Disposition: Admitted as Observation Clinical Impression: Pneumonia, Tobacco use disorder Discharge Date/Time: 06/11/18 17:27 Interventions: ED Discharge Assessment Last Done: 06/11/18 17:14 Admit Date/Time: 06/11/18 16:57 Admit Provider: Prasad Pang
[2018-06-11 14:13] LABS: Influenza A and B by PCR Rapid Negative (Negative)
[2018-06-11 14:30] LABS: B Type Natriuretic Peptide < 100 (<100)
--- NOTE | 2018-06-11 14:42 | DI.CT.S_ITS ---
PROCEDURE: CT ANGIO CHEST PE PROTOCOL INDICATIONS: hypoxia, sudden onset sob x 5 days, crackles bases TECHNIQUE: After the administration of intravenous contrast, 2 mm thick sections acquired from the pulmonary apices to the posterior costophrenic angles. 3-dimensional maximum intensity projection (MIP) coronal and sagittal reformats were then acquired through the thorax. For radiation dose reduction, the following was used: automated exposure control, adjustment of mA and/or kV according to patient size. COMPARISON: [facility], CT, THORAX WITH CONTRAST, 03/24/2017, 13:15. [facility], CT, ABDOMEN/PELVIS WITH CONTRAST, 07/02/2015, 13:20. [facility], CR, XR CHEST 1V, 06/11/2018, 12:42. FINDINGS: Image quality: Excellent. Pulmonary arteries: Pulmonary arteries are normal in size, and demonstrate no intraluminal filling defects to suggest central pulmonary embolism. Lungs and pleura: Include groundglass opacities with basilar predominance noted. Interstitial thickening noted in the lung bases bilaterally. Bibasilar alveolar opacities. No pleural effusions or pneumothorax. Central and peripheral airways are patent. Mediastinum: Heart size is normal, without pericardial effusion. Atherosclerotic calcifications are noted in the aorta, great vessels and the coronary vasculature. No mediastinal or hilar adenopathy. Thoracic aorta is normal in caliber and enhancement. The left vertebral artery arises from the aortic arch. Esophagus is normal in caliber, without hiatal hernia. Bones and chest wall: No suspicious bony lesions. Ribs and thoracic spine appear intact throughout. Thyroid gland is within normal limits the visualized. No axillary or supraclavicular adenopathy. Abdomen: Visualized upper abdominal solid organs appear normal in the early arterial phase of enhancement. IMPRESSION: 1. No pulmonary embolus. 2. Bilateral lung groundglass opacities, interstitial thickening and bibasilar alveolar opacities. Findings may be related to pulmonary edema versus atypical pneumonia. Dictated by: Lisa Cunningham MD, PhD on 06/11/2018 at 15:06 Approved by: Lisa Cunningham MD, PhD on 06/11/2018 at 15:11
[2018-06-11 16:03] LABS: Bacteria Urine Moderate (10-30); Culture Indicated Urine Specimen Cultured; RBC Urine 5-10/HPF (0-5/HPF); WBC Urine 5-10/HPF (0-5/HPF)
[2018-06-11] MEDS: levoFLOXacin 750 MG/150 ML PIGGYBACK 100 MG IV (16:55)
[2018-06-11] MEDS: HYDROCODONE/ACET 10/325 TABLET 1 TAB PO ×2 (17:00→21:05)
--- NOTE | 2018-06-11 17:27 | P.HP_ITS ---
History of Present Illness Date Patient Seen: 06/11/18 Time Patient Seen: 17:20 Chief complaint: says hard time breathing x5 days Narrative: Patient presented with shortness of breath about 5 days duration. She reports rather sudden onset. She is noticing this with activity and maybe slightly at rest. Denies any other symptoms including fever chills cough etc. She recently tried to quit smoking as well has currently just started Wellbutrin for this purpose. Does have a history of chronic lung disease with evidence of atypical pneumonia/pulmonary fibrosis in March 2017 (on [address]). Has felt to have COPD and has chronically used inhalers but has not had any breathing test recently. Was an active smoker until 5 days ago, as above. Patient History Medical History Pulmonary fibrosis (Suspected) Chronic obstructive pulmonary disease (Chronic 10/29/13) Hypertension (Chronic ~2003) Hyperlipidemia with target LDL less than 100 (Chronic 10/29/13) Menopause present (Chronic 10/29/13) Lumbar back pain (Chronic) Degeneration of intervertebral disc of lumbar region (Chronic 03/23/15) Tobacco use disorder (Chronic 02/24/11) Chronic back pain (Chronic ~1999) Headache (Chronic ~1989) Migraines (Chronic ~1989) Pneumothorax (Chronic ~03/20/17) Surgical History Anesthesia (Resolved) History of hysterectomy, supracervical (Resolved ~2004) Social History Smoking Status: Current every day smoker Family & Social History Safety & Behavioral: Feels Safe in Current Yes Environment Been Physically Hurt or No Threatened By a Person Tobacco & Substance use: Smoking Status Current every day smoker alcohol intake frequency 0-2 drinks per day Substance Use Type does not use Meds Home Medications Medication Instructions Recorded Confirmed Type atenolol 50 mg tablet 50 mg PO DAILY #90 tab 08/24/17 06/11/18 Rx ipratropium bromide 17 1 puff INHALATION QID PRN #38.7 08/24/17 06/11/18 Rx mcg/actuation HFA aerosol inhaler gram bupropion HCl 100 mg tablet 100 mg PO BID #180 tab 01/23/18 06/11/18 Rx acetaminophen 1 dose PO PRN PRN 06/11/18 06/11/18 History amlodipine [Norvasc] 5 mg PO DAILY 06/11/18 06/11/18 History estrogens-methyltestosterone 1 tab PO DAILY 06/11/18 06/11/18 History [Covaryx H.S.] hydrocodone-acetaminophen 0.5 - 1 tab PO Q8H PRN 06/11/18 06/11/18 History Allergies Allergy/AdvReac Type Severity Reaction Status Date / Time Penicillins [PENICILLINS] Allergy Unknown Verified 06/11/18 12:37 aspirin [ASPIRIN] AdvReac Mild GI Verified 06/11/18 12:37 TEGADERM Allergy Mild SKIN Uncoded 01/23/18 16:28 REDNESS PAIN CONTRACT Allergy Unknown Uncoded 01/23/18 16:28 Review of Systems Constitutional Constitutional: Denies excessive sweating, Denies fever(s), Denies headache(s), Denies weakness, Denies weight gain and Denies weight loss Eyes Eyes: Denies change in vision, Denies itchy eyes, Denies loss of vision and Denies other visual disturbances ENT Ears, Nose, Mouth, and Throat: No difficulty swallowing, No headache(s) and No neck pain Cardiovascular Cardiovascular: Denies chest pain, Denies fainting, Denies fast heart rate, Denies irregular heart rhythm, Denies rapid, pounding, or irregular heartbeat, Reports shortness of breath, Reports shortness of breath with activity and Denies slow heart rate Respiratory Respiratory: Denies chest congestion, Denies cough, Denies pain on inspiration, Reports dyspnea, Reports dyspnea on exertion and Denies wheezing Gastrointestinal Gastrointestinal: Denies abdominal pain, Denies bloating, Denies change in bowel habits, Denies change in stool character, Denies dysphagia, Denies nausea, Denies vomiting and Denies hematemesis Genitourinary Genitourinary: Denies hematuria, Denies urinary frequency and Denies difficulty voiding Musculoskeletal Musculoskeletal: Denies abnormal gait, Denies myalgias, Denies arthralgias, Denies limited range of motion and Denies neck pain Integumentary/Breasts Skin/Breast: Denies bleeding lesions, Denies change in pigmentation, Denies changing lesions, Denies new lesions, Denies rash, Denies skin swelling, Denies sores and Denies jaundice Neurologic Neurologic: Denies abnormal gait, Denies behavioral changes, Denies confusion, Denies syncope, Denies headache(s), Denies loss of vision, Denies memory loss and Denies weakness Psychiatric Psychiatric: Denies behavioral changes, Denies change in appetite, Denies confusion, Denies difficulty concentrating, Denies auditory hallucinations, Denies memory loss, Denies mood swings and Denies suicidal ideation Endocrine Endocrine: Denies excessive sweating and Denies palpitations Hematologic/Lymphatic Hematologic/Lymphatic: Denies easy bleeding, Denies easy bruising and Denies lymphadenopathy Allergic/Immunologic Allergic/Immunologic: Denies itchy eyes and Denies wheezing Exam Vital Signs (past 8 hours): - 06/11/18 12:40 06/11/18 12:41 06/11/18 12:45 Pulse Rate 88 86 Respiratory Rate 25 H 27 H Blood Pressure [Left Arm] 150/87 H 150/87 H Pulse Oximetry 100 100 100 06/11/18 12:58 06/11/18 13:05 06/11/18 13:15 Pulse Rate 90 86 Respiratory Rate 28 H 28 H 24 Blood Pressure [Left Arm] 114/65 123/65 Pulse Oximetry 94 92 93 06/11/18 13:30 06/11/18 13:31 06/11/18 14:09 Pulse Rate 86 86 Respiratory Rate 17 27 H Blood Pressure [Left Arm] 141/79 H 118/87 Pulse Oximetry 93 92 95 06/11/18 14:15 06/11/18 14:30 06/11/18 15:30 Pulse Rate 85 89 95 H Respiratory Rate 26 H 23 23 Blood Pressure [Left Arm] 120/71 123/75 Pulse Oximetry 93 92 95 06/11/18 16:00 06/11/18 16:30 06/11/18 17:00 Pulse Rate 92 H 98 H 90 Respiratory Rate 29 H 29 H 18 Blood Pressure [Left Arm] Pulse Oximetry 93 94 94 06/11/18 17:19 Pulse Rate 96 H Respiratory Rate 20 Blood Pressure [Left Arm] Pulse Oximetry 94 Oxygen Delivery Method Nasal Cannula Oxygen Flow Rate 6 Const General: cooperative, healthy appearing, comfortable, well developed and well groomed Nutritional Appearance: well nourished Orientation: alert, awake and oriented x3 HENMT Head: normocephalic, atraumatic, No cyanosis of lips/distal nose, No raccoon eyes and No periorbital ecchymosis Ears: hearing grossly normal bilaterally and external ears normal Nose: external nose normal and nares normal Face and sinus: normal facial exam and face symmetric Mouth: oral mucosae normal, lip normal and tongue normal Eyes Alignment and Position: alignment normal Periorbital: periorbital findings normal Eyelids: eyelids normal Conjunctivae: conjunctivae normal Sclera: sclerae normal Cornea: corneas normal Pupils: PERRL EOM: EOM intact bilaterally Neck Neck: normal visual inspection, full ROM, trachea midline and No anterior neck swelling Thyroid: not diffusely enlarged Carotids: normal carotid upstroke Lymphatic: No lymphadenopathy Chest Chest: normal inspection of the chest, No crepitus and No tenderness Breast inspection: normal inspection of the breasts Resp Effort & Inspection: normal respiratory effort, able to speak in complete sentences, no audible wheezes, no cough, no retractions and tachypneic Auscultation: no wheezes, no rubs and other (Crackles at the bases bilaterally, very prominent on left less so on right) Percussion: percussion normal Tactile Fremitus: tactile fremitus absent Cardio Palpation: normal PMI Rate: regular rate Rhythm: regular rhythm Heart Sounds: S1 normal, S2 normal and normal, physiologic split S2 Bruits: no carotid bruits Pulses: brachial pulses present and radial pulses present GI Inspection: normal to inspection Palpation: soft and no hepatosplenomegaly Percussion: normal to percussion Auscultation: normal bowel sounds Back/Spine/Pelvis Back: No CVA tenderness Cervical Spine: normal cervical lordosis Thoracic/Lumbar Spine: thoracic and lumbar spine normal to inspection Skin General: no rashes or lesions noted, No excoriations, No induration, No jaundice, No mottling and No petechiae Lesions: no lesions (no worrisome/abl lesions) Rashes: no rashes Trauma: no lacerations or abrasions Wounds: no wounds Hair: normal Neuro General: alert, awake, oriented x3, tone normal and normal light touch, pain and propioception Cranial Nerves: CN's II-XI intact bilaterally Cognition: normal cognition Speech: speech normal Motor: muscle tone normal throughout Sensory Exam: no sensory deficits noted DTR's: Rt Biceps: 2+, Lt Biceps: 2+, Rt Brachioradialis: 2+, Lt Brachioradialis: 2+, Rt Patellar: 2+ and Lt Patellar: 2+ Extrem General: normal to inspection, no clubbing, cyanosis or edema and No calf tenderness Right upper extremity: normal to inspection Left upper extremity: normal to inspection Right lower extremity: normal to inspection Left lower extremity: normal to inspection Psych Appearance: grossly normal Mental Status: mental status grossly normal Speech and Movement: speech and movement normal and speech clear Mood: congruent mood Affect: normal affect Attitude: cooperative Thought Process: normal Thought Content: normal Judgment: judgment good Objective Labs Result Diagrams: 06/11/18 12:55 06/11/18 12:55 Labs: Laboratory Results - last 24 hr 06/11/18 06/11/18 06/11/18 12:55 12:55 12:55 WBC 12.4 H RBC 3.74 L Hgb 12.9 Hct 38.7 MCV 103.6 H MCH 34.6 H MCHC 33.4 RDW 13.7 Plt Count 442 H Neut % (Auto) 74.0 Lymph % (Auto) 12.6 L [place] % (Auto) 9.0 Eos % (Auto) 3.4 Baso % (Auto) 1.0 Neut # (Auto) 9200 H Lymph # (Auto) 1600 [place] # (Auto) 1100 H Eos # (Auto) 400 Baso # (Auto) 100 Sodium 135 L Potassium 4.1 Chloride 100 Carbon Dioxide 24 BUN 11 Creatinine 0.70 Estimated GFR > 60.0 BUN/Creatinine Ratio 15.7 Glucose 104 Lactate 1.3 Calcium 9.1 Total Bilirubin 0.6 AST 48 H ALT 16 Alkaline Phosphatase 80 Total Creatine Kinase CK-MB (CK-2) CK-MB (CK-2) Rel Index Troponin I B-Natriuretic Peptide Total Protein 7.9 Albumin 4.2 Globulin 3.7 Albumin/Globulin Ratio 1.1 Urine RBC Urine WBC Urine Bacteria Ur Culture Indicated? Influenza A & B (PCR) 06/11/18 06/11/18 06/11/18 12:55 12:55 13:30 WBC RBC Hgb Hct MCV MCH MCHC RDW Plt Count Neut % (Auto) Lymph % (Auto) [place] % (Auto) Eos % (Auto) Baso % (Auto) Neut # (Auto) Lymph # (Auto) [place] # (Auto) Eos # (Auto) Baso # (Auto) Sodium Potassium Chloride Carbon Dioxide BUN Creatinine Estimated GFR BUN/Creatinine Ratio Glucose Lactate Calcium Total Bilirubin AST ALT Alkaline Phosphatase Total Creatine Kinase 25 L CK-MB (CK-2) TNP CK-MB (CK-2) Rel Index TNP Troponin I < 0.012 B-Natriuretic Peptide < 100 Total Protein Albumin Globulin Albumin/Globulin Ratio Urine RBC Urine WBC Urine Bacteria Ur Culture Indicated? Influenza A & B (PCR) Negative 06/11/18 15:41 WBC RBC Hgb Hct MCV MCH MCHC RDW Plt Count Neut % (Auto) Lymph % (Auto) [place] % (Auto) Eos % (Auto) Baso % (Auto) Neut # (Auto) Lymph # (Auto) [place] # (Auto) Eos # (Auto) Baso # (Auto) Sodium Potassium Chloride Carbon Dioxide BUN Creatinine Estimated GFR BUN/Creatinine Ratio Glucose Lactate Calcium Total Bilirubin AST ALT Alkaline Phosphatase Total Creatine Kinase CK-MB (CK-2) CK-MB (CK-2) Rel Index Troponin I B-Natriuretic Peptide Total Protein Albumin Globulin Albumin/Globulin Ratio Urine RBC 5-10/hpf H Urine WBC 5-10/hpf H Urine Bacteria Moderate (10-30) H Ur Culture Indicated? Specimen cultured Influenza A & B (PCR) Assessment & Plan Assessment & Plan narrative: 1. Atypical pneumonia in a patient with evidence of pulmonary fibrosis. Her chest CT done today to rule out pulmonary embolism (given the rather sudden onset of symptoms) is quite remarkable for honeycombing type interstitial infiltrate. This was also seen in March 2017 to a much much lesser extent. The degree of patient's underlying chronic lung disease is unkno wn at this time. She does have a slightly elevated white blood cell count and this is most consistent with an atypical pneumonia. I will treat her with IV Levaquin which should be effective against most of the common atypical organisms, as well as appropriate for community-acquired pneumonia. Given what appears to be an underlying element of chronic pulmonary fibrosis I think she would benefit from IV steroid therapy as well. This may be a version of some sort of organizing pneumonia which is less infectious in more inflammatory in nature. The degree of oxygen she is requiring to maintain a more normal oxygen saturation is not surprising given the appearance of her pulmonary parenchyma on CT scan. She clearly will benefit from an outpatient workup for chronic pulmonary disease once she is some improved and discharged. If she does not begin to improve over the next 24-48 hours with steroid therapy I would strongly consider transfer to a tertiary care center where pulmonary medicine is available. In that setting bronchoscopy with BAL etc is rdz to diagnosis. All have respiratory therapy see here and continue with evaluation and treatment. 2. Chronic back pain in opiate dependent patient-will provide patient with hydrocodone here in the hospital. 3. Smoking cessation-patient has already started smoking cessation on her own with the assistance Wellbutrin. Will continue that here in the hospital for now as well. 4. Hypertension-patient's numbers are acceptable at the current time. Will monitor carefully. Overall patient clearly deserves inpatient hospitalization given her significant hypoxia, her need for careful monitoring and evaluation as well as treatment with broad-spectrum IV antibiotics.
[2018-06-11] MEDS: methylPREDNISolone 125 MG/2 ML VIAL 60 MG IV (18:56)
[2018-06-11] MEDS: DEXTROSE 5%-0.45% NS 1,000 ML 80 ML IV (18:56)
[2018-06-11] MEDS: ALBUTEROL/IPRATROPIUM 3 ML AMPUL INH (19:41)
[2018-06-12] VITALS (15 sets, daily range): BP systolic 114–143; BP diastolic 78–95; PULSE 93–114; RESP 15–22; TEMP 36.3–36.8; O2SAT 89–96
[2018-06-12] MEDS: ZOLPIDEM 5 MG TABLET PO ×2 (00:37→23:52)
--- NOTE | 2018-06-12 00:56 | PC.NURSE ---
2300- Pt admit from ED this evening w/ diffuse pneumonia present. Currently on 6L high adriel O2 w/ sats in low 90's. Using BSC as pt gets very SOB w/ exertion & at rest as well. Tele in place SR @ rest & ST w/ exertion. R forearm IV infusing D5 1/2 NS as ordered. Pt is flu negative w/ dry cough present. 0030- Up to BSC very SOB & lips blue. Pt's O2 sats remain at 93% on 6L; back to bed pt normalizes. PO Ambien given as requested. 0400- Up to BSC indep w/ RN present in room. Less SOB this time, no blue lips. Pt seems to be tolerating ambulation better than before.
[2018-06-12] MEDS: ALBUTEROL/IPRATROPIUM 3 ML AMPUL INH ×4 (05:24→19:14)
[2018-06-12] MEDS: methylPREDNISolone 125 MG/2 ML VIAL 60 MG IV ×2 (05:36→17:16)
[2018-06-12] MEDS: HYDROCODONE/ACET 10/325 TABLET 1 TAB PO ×4 (05:36→21:53)
[2018-06-12] MEDS: DEXTROSE 5%-0.45% NS 1,000 ML 80 ML IV ×2 (06:39→20:42)
[2018-06-12] MEDS: buPROPion 100 MG TABLET PO (08:43)
[2018-06-12] MEDS: ENOXAPARIN 40 MG/0.4 ML SYRINGE SUBCUT (08:43)
[2018-06-12] MEDS: ATENOLOL 50 MG TABLET PO (08:43)
--- NOTE | 2018-06-12 09:35 | P.PN_ITS ---
Subjective Date Patient Seen: 06/12/18 Time Patient Seen: 09:00 Interval history: Patient reports still getting winded with any activity but her recovery time is improved currently over were was when she 1st came to her hospital room last night No new symptoms or problems overnight Exam Vital Signs (past 8 hours): - 06/12/18 04:50 06/12/18 05:24 06/12/18 07:40 Temperature 97.3 F L Pulse Rate 96 H Respiratory Rate 22 Blood Pressure 128/78 Pulse Oximetry 95 92 93 06/12/18 08:00 Temperature 97.9 F Pulse Rate 103 H Respiratory Rate 20 Blood Pressure 137/85 Pulse Oximetry 93 Oxygen Delivery Method High Flow Nasal Cannula Oxygen Flow Rate 6 Narrative Exam Narrative: Unchanged from previous Objective Labs Result Diagrams: 06/11/18 12:55 06/11/18 12:55 Labs: Laboratory Results - last 24 hr 06/11/18 06/11/18 06/11/18 12:55 12:55 12:55 WBC 12.4 H RBC 3.74 L Hgb 12.9 Hct 38.7 MCV 103.6 H MCH 34.6 H MCHC 33.4 RDW 13.7 Plt Count 442 H Neut % (Auto) 74.0 Lymph % (Auto) 12.6 L [place] % (Auto) 9.0 Eos % (Auto) 3.4 Baso % (Auto) 1.0 Neut # (Auto) 9200 H Lymph # (Auto) 1600 [place] # (Auto) 1100 H Eos # (Auto) 400 Baso # (Auto) 100 Sodium 135 L Potassium 4.1 Chloride 100 Carbon Dioxide 24 BUN 11 Creatinine 0.70 Estimated GFR > 60.0 BUN/Creatinine Ratio 15.7 Glucose 104 Lactate 1.3 Calcium 9.1 Total Bilirubin 0.6 AST 48 H ALT 16 Alkaline Phosphatase 80 Total Creatine Kinase CK-MB (CK-2) CK-MB (CK-2) Rel Index Troponin I B-Natriuretic Peptide Total Protein 7.9 Albumin 4.2 Globulin 3.7 Albumin/Globulin Ratio 1.1 Urine RBC Urine WBC Urine Bacteria Ur Culture Indicated? Influenza A & B (PCR) 06/11/18 06/11/18 06/11/18 12:55 12:55 13:30 WBC RBC Hgb Hct MCV MCH MCHC RDW Plt Count Neut % (Auto) Lymph % (Auto) [place] % (Auto) Eos % (Auto) Baso % (Auto) Neut # (Auto) Lymph # (Auto) [place] # (Auto) Eos # (Auto) Baso # (Auto) Sodium Potassium Chloride Carbon Dioxide BUN Creatinine Estimated GFR BUN/Creatinine Ratio Glucose Lactate Calcium Total Bilirubin AST ALT Alkaline Phosphatase Total Creatine Kinase 25 L CK-MB (CK-2) TNP CK-MB (CK-2) Rel Index TNP Troponin I < 0.012 B-Natriuretic Peptide < 100 Total Protein Albumin Globulin Albumin/Globulin Ratio Urine RBC Urine WBC Urine Bacteria Ur Culture Indicated? Influenza A & B (PCR) Negative 06/11/18 15:41 WBC RBC Hgb Hct MCV MCH MCHC RDW Plt Count Neut % (Auto) Lymph % (Auto) [place] % (Auto) Eos % (Auto) Baso % (Auto) Neut # (Auto) Lymph # (Auto) [place] # (Auto) Eos # (Auto) Baso # (Auto) Sodium Potassium Chloride Carbon Dioxide BUN Creatinine Estimated GFR BUN/Creatinine Ratio Glucose Lactate Calcium Total Bilirubin AST ALT Alkaline Phosphatase Total Creatine Kinase CK-MB (CK-2) CK-MB (CK-2) Rel Index Troponin I B-Natriuretic Peptide Total Protein Albumin Globulin Albumin/Globulin Ratio Urine RBC 5-10/hpf H Urine WBC 5-10/hpf H Urine Bacteria Moderate (10-30) H Ur Culture Indicated? Specimen cultured Influenza A & B (PCR) Assessment & Plan Assessment & Plan narrative: 1. Pneumonia-again I believe this is more inflammatory organizing pneumonia than an infectious etiology but will continue antibiotics anyway. Continue on IV steroids. Continue with significant oxygen supplementation. Patient did present with hypoxia without evidence of respiratory failure to the ER yesterday and is improved now on oxygen therapy. I am hopeful that steroids will kick initial have began to have some resolution of her pneumonia. My experience with patients like this is the either improve slowly or they get worse more dramatically. If she begins to get worse at all I would have a low threshold for transferring her to a tertiary care center. 2. Hypertension-continue with current meds. I have held 1 of her antihypertensives and blood pressure is okay for now. 3. Chronic back pain etc-continue with hydrocodone as she receives an outpatient. Overall patient is slightly improved. I am hopeful for more dramatic improvement over the next couple of days. Note: Greater than 15 minutes was spent evaluating the patient on the floor, including examining the patient, discussing clinical course with clinical and nursing staff, reviewing clinical course in the computer, preparing documentation and writing orders for continued management of care, discussing status with family as appropriate, reviewing plans for the next 24 hours with both patient/family and nursing staff as appropriate.
--- NOTE | 2018-06-12 13:48 | CM.DANOTE ---
Patient is a 63 year old female who was admitted on 06/11/18 for SOB. Pt has [employer] for insurance and her PCP is Dr. Pang. EMR was reviewed. Per MD, pt with chronic lung disease and has been attempting to quit smoking. Pt with Pneumonia and possible pulmonary fibrosis and currently on IV-Abx, steroid tx, and oxygen. SW met bedside with pt and explained role and pt confirms that she lives in [place] with her and is Independent with ADL's at baseline. Pt was admitted last year Mar 2017 for pneumothorax and was able to d/c home with and no needs at that time. Pt denies any other supportive services in place and pt does not have home Oxygen at baseline. Pt unsure of her needs at d/c and aware that RT will be following to determine if she may have new need of home oxygen at d/c. Plan: SW to follow closely to determine if she will be safe for d/c home with spouse when medically stable. R/O possible new home oxygen need pending pt progress. 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 No History Provided By Patient Medical Record Has Patient been admitted in last 30 No days? Prior Living Arrangements House Household Members spouse Type of transporation used prior to Drives own vehicle admit Independent with ADL's Yes Is patient alert and oriented? Yes Caregiver for Another No Comment Waiting for further eval towards identifying d/c needs. Discharge Plan Home Transportation Arrangement Spouse likely can provide transport at d/c. Whiteboard Updated in Patient Room with Yes name and ext. # of Overlock Sewing Machine Operator Review Status In Process Please Provide Date Initial DC 06/12/18 Assessment Was Performed Next Review Type Continued Stay Review
[2018-06-12] MEDS: levoFLOXacin 750 MG/150 ML PIGGYBACK 100 MG IV (16:28)
[2018-06-13] VITALS (16 sets, daily range): BP systolic 124–153; BP diastolic 67–92; PULSE 92–108; RESP 16–24; TEMP 35.8–36.8; O2SAT 86–96
--- NOTE | 2018-06-13 00:40 | PC.NURSE ---
2300- Pt lying in bed having SOB w/ exertion & movement. Currently on 6L high flow O2 w/ sats in mid 90's; using pursed lipped breathing. Skin tone pale; pt is walking to bathroom w/ IV & O2 despite this RN telling her the BSC would be better for her breathing. Tele in place reading SR @ rest & ST w/ movement. D5 1/2 NS running as ordered. 2350- PO Ambien given for sleep. 0445- PO [place] given for chronic back pain. Pt's IV steroids administered. Remains on 6L w/ stable sats; denies any needs.
[2018-06-13] MEDS: HYDROCODONE/ACET 10/325 TABLET 1 TAB PO ×4 (04:48→23:30)
[2018-06-13] MEDS: methylPREDNISolone 125 MG/2 ML VIAL 60 MG IV ×2 (05:43→17:56)
[2018-06-13] MEDS: ALBUTEROL/IPRATROPIUM 3 ML AMPUL INH ×5 (06:23→23:45)
[2018-06-13] MEDS: ENOXAPARIN 40 MG/0.4 ML SYRINGE SUBCUT (08:39)
[2018-06-13] MEDS: buPROPion 100 MG TABLET PO ×2 (08:39→20:34)
[2018-06-13] MEDS: ATENOLOL 50 MG TABLET PO (08:40)
--- NOTE | 2018-06-13 08:45 | P.PN_ITS ---
Subjective Date Patient Seen: 06/13/18 Time Patient Seen: 08:44 Interval history: Patient reports feeling definitely improved. She has adjusted her activity so she does not take off at 100 miles an hour immediately and that is helped but she clearly has the sense that her lungs are improving. Does not get is winded as easily or as quickly and her recovery time is improved. Her overall oxygen requirement however is unchanged Nothing new or different ongoing Exam Vital Signs (past 8 hours): - 06/13/18 04:10 06/13/18 06:25 06/13/18 08:00 Temperature 97.6 F 97.3 F L Pulse Rate 105 H 106 H Respiratory Rate 20 22 Blood Pressure 141/80 H 145/85 H Pulse Oximetry 93 96 93 Oxygen Delivery Method Nasal Cannula Oxygen Flow Rate 6 Narrative Exam Narrative: Lungs unchanged, sharp plastic wrap type crackles to mid lung field bilaterally, previously right greater than left but currently matched Objective Labs Result Diagrams: 06/11/18 12:55 06/11/18 12:55 Assessment & Plan Assessment & Plan narrative: 1. Atypical pneumonia-again I think this more of an inflammatory organizing pneumonia infectious issue. Continue with IV steroids as well as the IV antibiotics. Patient reports some subjective improvement which is good. Hopefully will begin to have some objective improvement as evidence by decreasing oxygen requirements I am going to DC IV fluids as well Note: Greater than 30 minutes was spent evaluating the patient on the floor, including examining the patient, discussing clinical course with clinical and nursing staff, reviewing clinical course in the computer, preparing doc umentation and writing orders for continued management of care, discussing status with family as appropriate, reviewing plans for the next 24 hours with both patient/family and nursing staff as appropriate.
[2018-06-13] MEDS: levoFLOXacin 750 MG/150 ML PIGGYBACK 100 MG IV (16:23)
--- NOTE | 2018-06-13 16:56 | PC.NURSE ---
Addendum entered by Teagan Dwyer R.N. 06/13/18 23:43: Pt has been in room from bed to chair to bathroom this evening shift. Dyspnea with exertion. 02 6L per high flow cannula sats 91-92%. Appropriate mentation and conversation. Hydrocodone as per request for back pain 08/20. Original Note: Pt moves self independently from bed to chair. 02 per 6L hi flow NC. Reports clear sputum with cough. Reports feeling much better than upon admission. Admits to back pain 08/20, but declines offer for analgesia @ this time. Fine crackles to bases BL.
[2018-06-13] MEDS: SODIUM CHLORIDE 0.9% FLUSH 10 ML IV (20:34)
[2018-06-14] VITALS (13 sets, daily range): BP systolic 132–149; BP diastolic 80–92; PULSE 78–97; RESP 16–20; TEMP 36.2–36.6; O2SAT 90–97
[2018-06-14] MEDS: ZOLPIDEM 5 MG TABLET PO (00:53)
[2018-06-14] MEDS: SODIUM CHLORIDE 0.9% FLUSH 10 ML IV ×5 (01:14→21:23)
[2018-06-14] MEDS: methylPREDNISolone 125 MG/2 ML VIAL 60 MG IV ×2 (05:14→17:52)
[2018-06-14] MEDS: HYDROCODONE/ACET 10/325 TABLET 1 TAB PO ×3 (07:49→21:52)
[2018-06-14] MEDS: buPROPion 100 MG TABLET PO ×2 (08:18→21:23)
[2018-06-14] MEDS: ENOXAPARIN 40 MG/0.4 ML SYRINGE SUBCUT (08:18)
[2018-06-14] MEDS: ATENOLOL 50 MG TABLET PO (08:18)
[2018-06-14] MEDS: ALBUTEROL/IPRATROPIUM 3 ML AMPUL INH ×2 (09:14→19:17)
--- NOTE | 2018-06-14 09:35 | PM.PN.1 ---
Subjective Date Patient Seen: 06/14/18 Time Patient Seen: 09:00 Interval history: Patient clearly becoming bored in the hospital. I think that is a sign she is feeling better. Wants to be up and around more and see what her oxygen level does. Feels like she recovers much more quickly gets last breathless with activity although it is a subtle change. Still requiring 6 L oxygen nasal cannula Exam Vital Signs (past 8 hours): - 06/14/18 05:18 06/14/18 08:00 06/14/18 09:14 Temperature 97.9 F 98 F Pulse Rate 97 H 95 H 94 H Respiratory Rate 16 18 Blood Pressure 149/86 H 145/87 H Pulse Oximetry 97 93 93 Oxygen Delivery Method High Flow Nasal Cannula Oxygen Flow Rate 6 Narrative Exam Narrative: Unchanged from previous Objective Labs Result Diagrams: 06/11/18 12:55 06/11/18 12:55 Assessment & Plan Assessment & Plan narrative: Patient's pneumonia appears to be slowly improving. Continue with IV antibiotics but more importantly IV steroids. I am hopeful that we can get her home most likely with oxygen at home in the next 48-72 hours. Her oxygen requirement still fairly high and would be difficult to manage at home. Hopefully that will begin to come down over the next couple of days as well Note: Greater than 30 minutes was spent evaluating the patient on the floor, including examining the patient, discussing clinical course with clinical and nursing staff, reviewing clinical course in the computer, preparing documentation and writing orders for continued management of care, discussing status with family as appropriate, reviewing plans for the next 24 hours with both patient/family and nursing staff as appropriate.
--- NOTE | 2018-06-14 15:38 | PC.NURSE ---
Addendum entered by Teagan Dwyer R.N. 06/14/18 22:29: Oxygen @ 4L per hi flow cannula 92% saturation consistently throughout this shift. Increased dyspnea with activity and pt has difficulty remaining in resting state in bed or chair. Continual movement/motion and spouse and pt confirm this is patient's baseline. Headache pain comes and goes. Meds as per emar. Original Note: Per report, R.T. has decreased pt's 02 from 6L to 4L. 02 saturation level currently at rest 92%. Admits to headache pain and noted meds have been entered per emar. Will administer and monitor. Coarse breath sounds to bases BL. No cough with deep inspiration.
[2018-06-14] MEDS: levoFLOXacin 750 MG/150 ML PIGGYBACK 100 MG IV (16:06)
[2018-06-14] MEDS: VERAPAMIL SR 120 MG TABLET PO (16:06)
[2018-06-14] MEDS: BENZOCAINE/MENTHOL 1 LOZ PKT 1 EACH PO (21:22)
[2018-06-14] MEDS: NORTRIPTYLINE 10 MG CAPSULE PO (21:23)
[2018-06-15] VITALS (11 sets, daily range): BP systolic 140–150; BP diastolic 76–86; PULSE 68–85; RESP 16–20; TEMP 36.1–37; O2SAT 82–95
[2018-06-15] MEDS: ZOLPIDEM 5 MG TABLET PO (00:06)
[2018-06-15] MEDS: methylPREDNISolone 125 MG/2 ML VIAL 60 MG IV ×2 (05:43→17:18)
--- NOTE | 2018-06-15 08:08 | PM.PN.1 ---
Subjective Date Patient Seen: 06/15/18 Time Patient Seen: 08:09 Interval history: Patient reports her headache was gone for some short period of time yesterday. She was given verapamil and nortriptyline an effort to break her chronic daily headache cycle Breathing seems better. Her oxygen requirement has diminished. She still gets dyspneic with activity but does not desaturate as quickly or as dramatically and recovers relatively quickly Exam Vital Signs (past 8 hours): - 06/15/18 07:00 06/15/18 07:45 Temperature 98.3 F Pulse Rate 81 Respiratory Rate 16 Blood Pressure 148/76 H Pulse Oximetry 94 91 Oxygen Delivery Method Nasal Cannula Oxygen Flow Rate 3 Narrative Exam Narrative: Lungs unchanged, plastic wrap type crackles at the bases bilaterally Objective Labs Result Diagrams: 06/11/18 12:55 06/11/18 12:55 Assessment & Plan Assessment & Plan narrative: 1. Organizing pneumonia-continue with antibiotics which I will switch to oral form today. Continue with IV steroids. Continue to wean oxygen as able. In preparation for her going home I will have her evaluated for home oxygen therapy as well since her oxygen requirement is now down to the point where that could be feasible. 2. Headache-continue with the verapamil and the nortriptyline at night to see if we can break this cycle. I hope that it was related to her hypoxia which I suppose is still possible but that is now been corrected and she still has a headache. No evidence of focal neurologic change to suggest OPTICAL SALES ASSOCIATE lesion etc. consider OPTICAL SALES ASSOCIATE imaging if not improving 3. COPD-continue with inhaled medications and IV steroids. Continue to counseling aide patient to remain off cigarettes Overall patient is improved and I think we could anticipate discharge home on home oxygen some time the next 24-48 hours. Note: Greater than 15 minutes was spent evaluating the patient on the floor, including examining the patient, discussing clinical course with clinical and nursing staff, reviewing clinical course in the computer, preparing documentation and writing orders for continued management of care, discussing status with family as appropriate, reviewing plans for the next 24 hours with both patient/family and nursing staff as appropriate.
--- NOTE | 2018-06-15 08:11 | P.PN_ITS ---
Subjective Date Patient Seen: 06/15/18 Time Patient Seen: 08:09 Interval history: Patient reports her headache was gone for some short period of time yesterday. She was given verapamil and nortriptyline an effort to break her chronic daily headache cycle Breathing seems better. Her oxygen requirement has diminished. She still gets dyspneic with activity but does not desaturate as quickly or as dramatically and recovers relatively quickly Exam Vital Signs (past 8 hours): - 06/15/18 07:00 06/15/18 07:45 Temperature 98.3 F Pulse Rate 81 Respiratory Rate 16 Blood Pressure 148/76 H Pulse Oximetry 94 91 Oxygen Delivery Method Nasal Cannula Oxygen Flow Rate 3 Narrative Exam Narrative: Lungs unchanged, plastic wrap type crackles at the bases bilaterally Objective Labs Result Diagrams: 06/11/18 12:55 06/11/18 12:55 Assessment & Plan Assessment & Plan narrative: 1. Organizing pneumonia-continue with antibiotics which I will switch to oral form today. Continue with IV steroids. Continue to wean oxygen as able. In preparation for her going home I will have her evaluated for home oxygen therapy as well since her oxygen requirement is now down to the point where that could be feasible. 2. Headache-continue with the verapamil and the nortriptyline at night to see if we can break this cycle. I hope that it was related to her hypoxia which I suppose is still possible but that is now been corrected and she still has a headache. No evidence of focal neurologic change to suggest AMMUNITION ASSEMBLY I LABORER lesion etc. consider AMMUNITION ASSEMBLY I LABORER imaging if not improving 3. COPD-continue with inhaled medications and IV steroids. Continue to automobile travel club counselor patient to remain off cigarettes Overall patient is improved and I think we could anticipate discharge home on home oxygen some time the next 24-48 hours. Note: Greater than 15 minutes was spent evaluating the patient on the floor, including examining the patient, discussing clinical course with clinical and nursing staff, reviewing clinical course in the computer, preparing documentation and writing orders for continued management of care, discussing status with family as appropriate, reviewing plans for the next 24 hours with both patient/family and nursing staff as appropriate.
[2018-06-15] MEDS: ALBUTEROL/IPRATROPIUM 3 ML AMPUL INH ×2 (08:38→11:45)
--- NOTE | 2018-06-15 08:50 | RT ---
Came by to give patient her breathing tx. Patient was eating and declined. Was walking by room around 830 and patient asked for tx. Tx given. Noticed PT's O2 tank and carrier in patient's room hidden behind a chair. Upon exiting, started to take tank with me. Patient became very agitated, and started to cry, saying that yesterday it took six hours to get a tanl and no one was available to walk her. Assured patient that I have several oxygen tanks available in my storage room and that one can be provided at any time but that that oxygen patel and tank belonged to PT and they would be wondering where it was when they needed it to walk other patients. Patient very upset and went into [facility], closing door on me. Toold patient my name several times throughout conversation and that if she needed anything to call me and wrote my name and dept on the board.
[2018-06-15] MEDS: HYDROCODONE/ACET 10/325 TABLET 1 TAB PO ×3 (09:24→23:35)
[2018-06-15] MEDS: ATENOLOL 50 MG TABLET PO (09:25)
[2018-06-15] MEDS: buPROPion 100 MG TABLET PO ×2 (09:25→21:05)
[2018-06-15] MEDS: VERAPAMIL SR 120 MG TABLET PO (09:25)
[2018-06-15] MEDS: SODIUM CHLORIDE 0.9% FLUSH 10 ML IV ×2 (09:26→21:05)
[2018-06-15] MEDS: ENOXAPARIN 40 MG/0.4 ML SYRINGE SUBCUT (09:26)
--- NOTE | 2018-06-15 10:24 | PC.NURSE ---
Day Shift- Pt very teary this morning regarding a headache lasting 9 days with little relief after Scheduled Verapamil dose. Also regarding yesterdays events of a delay in an ocygen tank so she can walk in halls. Support and encouragement provided. Bonita 10/325 X1 given at 0930 with good effect for headache and chronic low back pain. O2 sat 94% on 4L NC, O2 4l NC decreased to 3L NC around 0745. O2 sat 91%. After pt ambulating in room on 3L NC, O2 sat spot check for 86%, slowly increases to 92% when pt in resting position. At 1020, pt walking in hallways with her and on 4L NC O2. Steady gait, no light-headedness or dizziness. Slightly SOBOE. Walking slowly, no distress. Telemetry monitoring discontinued at 0830 per 's order.
--- NOTE | 2018-06-15 12:02 | RT ---
Spoke with patient regarding questions she had about different respiratory medications. Patient much more calm, not tearful. Said she is being referred to a human resources officer and asked about ones in the area. Told her about [facility] in [place] and the [facility] and also mentioned ones in [place] and [place].
[2018-06-15] MEDS: levoFLOXacin 250 MG TABLET 750 MG PO (17:17)
--- NOTE | 2018-06-15 17:49 | RT ---
Patient eating dinner and refused treatment. She says she doesn't think she will want another one tonight and after eating is going to take a walk with her . Informed her that she has prn txs which she can have whenever she likes.
[2018-06-15] MEDS: NORTRIPTYLINE 10 MG CAPSULE PO (21:05)
[2018-06-16] VITALS (17 sets, daily range): BP systolic 126–146; BP diastolic 74–87; PULSE 73–93; RESP 14–19; TEMP 36.1–36.7; O2SAT 85–97
--- NOTE | 2018-06-16 00:01 | PC.NURSE ---
Patient repositions independently in room; ambulated in hallway with SBA; O2 3L=95% at rest; LS diminished to bases; IV to Left Forearm; patient tolerating general diet, drinking copious amounts of cola; PO Weiner for chronic joint pain; call light activated, as needed
[2018-06-16] MEDS: SODIUM CHLORIDE 0.9% FLUSH 10 ML IV ×3 (05:41→20:13)
[2018-06-16] MEDS: methylPREDNISolone 125 MG/2 ML VIAL 60 MG IV (05:42)
[2018-06-16] MEDS: ATENOLOL 50 MG TABLET PO (08:34)
[2018-06-16] MEDS: buPROPion 100 MG TABLET PO ×2 (08:34→20:13)
[2018-06-16] MEDS: levoFLOXacin 250 MG TABLET 750 MG PO (08:34)
[2018-06-16] MEDS: ENOXAPARIN 40 MG/0.4 ML SYRINGE SUBCUT (08:34)
[2018-06-16] MEDS: HYDROCODONE/ACET 10/325 TABLET 1 TAB PO ×2 (09:29→17:57)
--- NOTE | 2018-06-16 10:23 | PM.PN.1 ---
Subjective Date Patient Seen: 06/16/18 Time Patient Seen: 10:24 Interval history: COPD. Patient feeling better somewhat annoyed and frustrated with the the prospect of being on oxygen. Willing and able to tolerate same. Has issues with verapamil amlodipine. This is discussed. Cough is still productive or not minimal mucus clear gets short of breath with activity but tolerating oxygen reasonably well. Overall patient stabilized but still appears to be requiring supplemental oxygen. Patient additionally is on intravenous steroids which will need to be switched to p.o. Exam Vital Signs (past 8 hours): - 06/16/18 07:22 06/16/18 08:45 06/16/18 09:00 Temperature 97.2 F L Pulse Rate 76 Respiratory Rate 18 Blood Pressure 140/85 Pulse Oximetry 92 93 93 Fraction of Inspired Oxygen 36 Oxygen Delivery Method Nasal Cannula Oxygen Flow Rate 4 Narrative Exam Narrative: Patient is sitting up in her bed having just taken a shower or wash her hair. She appears in no distress very conversant as nasal oxygen flowing. Minimal cough does not look short of breath at rest. Chest exam finds decreased breath sounds throughout. Cardiac exam regular rhythm no murmur gallop. Abdominal exam benign Objective Labs Result Diagrams: 06/11/18 12:55 06/11/18 12:55 Labs: No recent lab Assessment & Plan Assessment & Plan narrative: 1. Presumed acute community-acquired pneumonia. 2. Pre-existing COPD. 3. Acute exacerbation of COPD. 4. Hypertension patient had been on amlodipine will resume same at 5 mg daily. 5. Chronic migraine headaches ongoing. Patient did not feel verapamil as any use this to be discontinued. 6. Patient will be switched to oral prednisone today discontinue intravenous steroids. Respiratory therapy to arrange for home O2. Presumably discharge tomorrow
[2018-06-16] MEDS: predniSONE 20 MG TABLET 40 MG PO (11:17)
[2018-06-16] MEDS: AMLODIPINE 5 MG TABLET PO (11:17)
[2018-06-16] MEDS: ALBUTEROL/IPRATROPIUM 3 ML AMPUL INH ×3 (12:22→20:36)
--- NOTE | 2018-06-16 12:34 | CM.DPC ---
DCP Cont: Per MD, switching pt's steroids to p.o. in anticipation of likely pt d/c home tomorrow with new home oxygen if stable. Per RT, they have orders to assess pt for home oxygen but this needs to be done within 24 hrs of discharge. RT will follow closely to complete assessment and set pt up for her new home oxygen for discharge. Plan: SW to follow for likely pt d/c home tomorrow with new home oxygen if medically stable. SW to follow for any further identified discharge planning needs. JOSUE Jackson
--- NOTE | 2018-06-16 16:04 | RT ---
Entered room upon RN Julia telling this travel writer that patient's sat was 83% while she was sleeping. Patient had already been woken up to have oxygen put on when I arrived in the room. HR was 77 and O2 sat was 84%. Patient awake and sitting up in bed. Patient stated that she did not believe that her oxygen sat was accurate and that she felt completely fine. I offered to go get a finger probe and check it on that. Came back to room and put finger probe on one had and room monitor probe on the other and showed patient that her sat of 84% was indeed accurate. Patient very upset and asked, At what point do you guys stop looking at the numbers and ask me how *I* feel? Explained to patient that we take how a patient feels subjectively very seriously and we don't just look at the numbers but that her current oxygen numbers showed that she was unsafe to not have oxygen on and especially unsafe to do so without oxygen. Listened to patient explain her frustrations about lack of sleep due to being woken up for meds and vitals and also frustration that no one seems to care how she feels and are only looking at screens and numbers. Allowed her to voice her frustrations and validated same by explaining how this travel writer has been a patient in the hospital for a few weeks at a time a few years ago and how I, too, felt frustrated. Also shared how I have heard relatives describe the same feelings when in the hospital or facing a new and surprising diagnosis and let her know that I understand and am sorry she is feeling this way. Patient very tearful and states she is not trying to be a pain in the a. Assured her that that was not what I was thinking and that instead I was wondering what I could do to make her feel better. Patient said I could do nothing. Informed patient that she was due for a breathing tx, that I thought she should have it, but reiterated that she was in control of what happened to her here and had the right to refuse any intervention. Patient angrily stated that she would do whatever, she just wanted to get it over with. Med scanned and tx given. Offered to speak with RN and see if we could postpone any upcoming interventions so she could get a nap as she had complained of being exhausted and not getting any sleep while her. Patient stated that she didn't want me to speak to anyone about it as she was sure the nurse will make her own mind up about things anyway. Asked if there was anything In could get her and she refused. Left door cracked open per request of patient.
[2018-06-16] MEDS: NORTRIPTYLINE 10 MG CAPSULE PO (20:13)
[2018-06-17] MEDS: HYDROCODONE/ACET 10/325 TABLET 1 TAB PO ×2 (03:11→11:27)
[2018-06-17 03:36] VITALS: BP 149/87; PULSE 78; RESP 18; TEMP 36.6; O2SAT 94
[2018-06-17 07:58] VITALS: BP 145/80; PULSE 75; RESP 16; TEMP 36.1; O2SAT 92
[2018-06-17] MEDS: buPROPion 100 MG TABLET PO (08:17)
[2018-06-17] MEDS: levoFLOXacin 250 MG TABLET 750 MG PO (08:17)
[2018-06-17] MEDS: AMLODIPINE 5 MG TABLET PO (08:18)
[2018-06-17] MEDS: ATENOLOL 50 MG TABLET PO (08:18)
[2018-06-17] MEDS: predniSONE 20 MG TABLET 40 MG PO (08:18)
[2018-06-17] MEDS: ENOXAPARIN 40 MG/0.4 ML SYRINGE SUBCUT (08:18)
[2018-06-17] MEDS: SODIUM CHLORIDE 0.9% FLUSH 10 ML IV (08:19)
[2018-06-17 08:37] VITALS: O2SAT 92
[2018-06-17 09:19] VITALS: PULSE 78; RESP 16; O2SAT 94
[2018-06-17] MEDS: ALBUTEROL/IPRATROPIUM 3 ML AMPUL INH (09:19)
--- NOTE | 2018-06-17 11:35 | PC.NURSE ---
Pt dressed and ready for discharge home. Discussed d/c meds, time of last dose, reviewed stroke education, and follow up. Pt denies further questions and was taken out via w/c by DESTINATION SIGN REPAIRER with Spouse and all belongings.
--- NOTE | 2018-06-17 13:23 | PM.DS.1 ---
History of Present Illness Chief complaint: says hard time breathing x5 days Discharge Providers Date of admission: 06/11/18 16:57 Discharge Date: 06/17/18 Primary care physician: Prasad Pang MD Consults: 06/11/18 12:37 Consult to Respiratory Therapy Evaluate & Treat Comment: Physician Instructions: Evaluate and treat Discharge provider: Jhon Mercer MD Summary Discharge Diagnosis: 1. Acute exacerbation of COPD. 2. COPD. 3. Upper respiratory infection. 4. Pre-existing hypertension stable . 5. Questionable pulmonary fibrosis Hospital Course: The patient was admitted for evaluation management of her respiratory distress. She was felt to have a combination of chronic obstructive pulmonary disease, with acute exacerbation. Additionally felt to have an upper respiratory infection. She was placed on intravenous antibiotics for this. Additionally there is some concern of foot pulmonary fibrosis and perhaps some reactive airway. Because of this she is placed on intravenous steroids. During the course of her stay here she received aggressive pulmonary treatment and pulmonary toilet. However she continued did require supplemental oxygen. On the day prior to discharge she had oxygen saturations still in the 80s sometimes at rest sometimes with activity. She remained on nasal oxygen 3-4 L continuous as per recommendation by respiratory therapy. Discharged on home oxygen. Additionally Levaquin 750 mg daily for another week. Prednisone taper 40 mg a day for 5 days, 30 mg a day for 5 days, 20 mg a day for 5 days, 10 mg 5 days, 5 mg daily and during this time Dr. Pang will be seeing patient for follow-up and determining any duration of the steroid management. Patient again was is discussed about smoking and concerns there Status at Discharge Cognitive/behavioral status at discharge: oriented Functional status at discharge: independent ambulation Overall status at discharge: patient is not back to baseline Exam Vital Signs (past 8 hours): - 06/17/18 07:58 06/17/18 08:37 06/17/18 09:19 Temperature 97.0 F L Pulse Rate 75 78 Respiratory Rate 16 16 Blood Pressure 145/80 H Pulse Oximetry 92 92 94 Fraction of Inspired Oxygen 32 Oxygen Delivery Method Nasal Cannula Oxygen Flow Rate 3 Objective Labs Result Diagrams: 06/11/18 12:55 06/11/18 12:55 Discharge Plan Discharge Plan Patient Disposition: Home Discharge comment: home o2 at 3-4l/m continuous Discharge Med Rec/Prescriptions Prescriptions: New levofloxacin 250 mg Tablet 750 mg PO DAILY Qty: 7 RF: 0 prednisone 5 mg tablet 5 mg PO DAILY Qty: 120 RF: 0 Continued atenolol 50 mg tablet 50 mg PO DAILY Qty: 90 RF: 3 ipratropium bromide 17 mcg/actuation HFA aerosol inhaler 1 puff INHALATION QID PRN (Reason: shortness of breath or wheezing) Qty: 38.7 RF: 5 bupropion HCl 100 mg tablet 100 mg PO BID Qty: 180 RF: 3 amlodipine [Norvasc] 5 mg tablet 5 mg PO DAILY RF: 0 estrogens-methyltestosterone [Covaryx H.S.] 0.625-1.25 mg tablet 1 tab PO DAILY RF: 0 hydrocodone-acetaminophen 7.5-325 mg tablet 0.5 - 1 tab PO Q8H PRN (Reason: Back Pain) RF: 0 acetaminophen 325 mg Tablet 1 dose PO PRN PRN (Reason: Fever Or Pain) RF: 0 Follow up/Referrals: Prasad Pang MD [Primary Care Provider] - Visit Report/Discharge Packet Instructions: Prednisone (By mouth) Discharge Data Primary Care Provider: Prasad Pang Attending Provider: Prasad Pang Admit Date/Time: 06/11/18 16:57 Discharges patient from system. Discharge Date/Time: 06/17/18 11:39
--- NOTE | 2018-07-02 09:00 | PM.DS.1 ---
History of Present Illness Chief complaint: says hard time breathing x5 days Discharge Providers Date of admission: 06/11/18 16:57 Discharge Date: 06/17/18 Primary care physician: Prasad Pang MD Consults: 06/11/18 12:37 Consult to Respiratory Therapy Evaluate & Treat Comment: Physician Instructions: Evaluate and treat Discharge provider: Jhon Mercer MD Exam Vital Signs (past 8 hours): Fraction of Inspired Oxygen 32 Oxygen Delivery Method Nasal Cannula Oxygen Flow Rate 3 Objective Labs Result Diagrams: 06/11/18 12:55 06/11/18 12:55 Discharge Plan Discharge Plan Patient Disposition: Home Discharge comment: home o2 at 3-4l/m continuous Discharge Med Rec/Prescriptions Prescriptions: New prednisone 5 mg tablet 5 mg PO DAILY Qty: 120 RF: 0 Continued atenolol 50 mg tablet 50 mg PO DAILY Qty: 90 RF: 3 ipratropium bromide 17 mcg/actuation HFA aerosol inhaler 1 puff INHALATION QID PRN (Reason: shortness of breath or wheezing) Qty: 38.7 RF: 5 bupropion HCl 100 mg tablet 100 mg PO BID Qty: 180 RF: 3 amlodipine [Norvasc] 5 mg tablet 5 mg PO DAILY RF: 0 estrogens-methyltestosterone [Covaryx H.S.] 0.625-1.25 mg tablet 1 tab PO DAILY RF: 0 acetaminophen 325 mg Tablet 1 dose PO PRN PRN (Reason: Fever Or Pain) RF: 0 No Action hydrocodone-acetaminophen 7.5-325 mg tablet 0.5 - 1 tab PO Q8H PRN (Reason: Back Pain) Qty: 75 RF: 0 Follow up/Referrals: Prasad Pang MD [Primary Care Provider] - Visit Report/Discharge Packet Instructions: Prednisone (By mouth) Visit Report Forms: Stroke Signs & Symptoms Discharge Data Primary Care Provider: Prasad Pang Attending Provider: Prasad Pang Admit Date/Time: 06/11/18 16:57 Discharges patient from system. Discharge Date/Time: 06/17/18 11:39
== END 2018-06-17 11:39 | disposition home or self-care (01) | DRG 196 ==
LOC: ED 16:08 → AC 06-12 10:30
PROVIDERS: Admitting Provider Internal Medicine; Emergency Provider Emergency Medicine; PCP Internal Medicine; Visit Provider Internal Medicine
DX: J84.89 Other specified interstitial pulmonary diseases (principal); J96.01 Acute respiratory failure with hypoxia; J18.9 Pneumonia, unspecified organism; F11.20 Opioid dependence, uncomplicated; J44.1 Chronic obstructive pulmonary disease with (acute) exacerbation; J84.10 Pulmonary fibrosis, unspecified; Z87.891 Personal history of nicotine dependence; I10 Essential (primary) hypertension; E78.5 Hyperlipidemia, unspecified; G89.29 Other chronic pain; G43.809 Other migraine, not intractable, without status migrainosus; J06.9 Acute upper respiratory infection, unspecified
CPT/HCPCS: 36591; 71045; 71275; 80053; 81015; 82550; 83605; 83880; 84484; 85025; 87077; 87086; 87400; 93005; 94618; 94640; 94760; 96365; 99223; 99232; 99238; 99285; J1650; J1956; J2930; Q9967

== ENCOUNTER 2018-06-30 12:54 | Emergency (ER) | payer BC, SELFPAY ==
[2018-06-11 17:12] VITALS: BMI 25.7
[2018-06-30] VITALS (10 sets, daily range): BP systolic 114–130; BP diastolic 65–80; PULSE 82–92; RESP 16–30; O2SAT 65–93; BMI 25.7
[2018-06-30] MEDS: LEVALBUTEROL 1.25 MG/0.5 ML NEB INH ×2 (13:05)
--- NOTE | 2018-06-30 13:07 | DI.RAD.S_ITS ---
PROCEDURE: XR CHEST 1V INDICATIONS: sob, recent pna 1/5 weeks ago, copd TECHNIQUE: One view of the chest was acquired. COMPARISON: None. FINDINGS: Surgical changes and devices: None. Lungs and pleura: Interval worsening of diffuse ill-defined consolidative opacities throughout the bilateral hemithoraces with left greater than right pleural effusions. Underlying coarse interstitial markings as before. No pneumothorax. Mediastinum: Mediastinal contours appear normal. Heart size is normal. Bones and chest wall: No suspicious bony lesions. Overlying soft tissues appear unremarkable. IMPRESSION: Interval progression of diffuse, ill-defined consolidative opacities worse on the left with associated coarsened interstitial markings and loss of vascular distinctness. There are bilateral pleural effusions. Findings may represent progression of multifocal pneumonia versus worsening pulmonary edema. Underlying changes of chronic obstructive pulmonary physiology. Dictated by: Lex Haji M.D. on 06/30/2018 at 14:06 Approved by: Lex Haji M.D. on 06/30/2018 at 14:08
--- NOTE | 2018-06-30 13:10 | PC.NURSE ---
on arrival speaking 2-3 words, 3lpm via nc , sat 65%, increase to 6lpm via nc, dr rojas at . sat 82%. denies chest pain. c/o bilateral ribs preassure, denies coughing.
--- NOTE | 2018-06-30 13:13 | ED.URI ---
HPI - URI/Sore Throat General Chief Complaint: Upper Respiratory Symptoms Stated Complaint: SOB with exertion Time Seen by Provider: 06/30/18 13:04 Source: patient and EMS Mode of arrival: EMS Limitations: no limitations History of Present Illness HPI Narrative: This is a 63-year-old female comes in with increasing shortness of breath. Patient was seen here about a week and half ago admitted with pneumonia and COPD. Patient states she was discharged, she has some increasing shortness of breath this, she has been scheduled to see pulmonology but has not seen yet. It is unclear if this was truly a pneumonia versus other cause or she has some other sort of interstitial or pulmonary fibrotic type cause of her breathing issues. Today she tried to lay down to take a nap and when she got up she felt very short of breath. She states she has been watching her pulse ox at home she is supposed to be around 88 on 3 L but she has been dipping down significantly. She has some medication at home including inhalers and is slowly being weaned down on prednisone. She is at 40 mg for 5 days at this time. She has not had any fevers she is aware of. She has had a cough with productive sputum that is yellow clear, she states this may be a bit increased from when she was discharged. She denies any chest pain. She states her lungs feel tight at the bases. She denies any nausea or vomiting. she denies any diarrhea or constipation. No urinary symptoms. Related Data Home Medications Medication Instructions Recorded Confirmed acetaminophen 1 dose PO PRN PRN 06/11/18 06/26/18 amlodipine [Norvasc] 5 mg PO DAILY 06/11/18 06/26/18 estrogens-methyltestosterone 1 tab PO DAILY 06/11/18 06/26/18 [Covaryx H.S.] Previous Rx's Medication Instructions Recorded atenolol 50 mg tablet 50 mg PO DAILY #90 tab 08/24/17 ipratropium bromide 17 1 puff INHALATION QID PRN #38.7 08/24/17 mcg/actuation HFA aerosol inhaler gram bupropion HCl 100 mg tablet 100 mg PO BID #180 tab 01/23/18 prednisone 5 mg PO DAILY #120 tab 06/17/18 hydrocodone 7.5 mg-acetaminophen 0.5 - 1 tab PO Q8H PRN #75 tab 06/26/18 325 mg tablet Allergies Allergy/AdvReac Type Severity Reaction Status Date / Time Penicillins [PENICILLINS] Allergy Unknown Verified 06/30/18 13:06 aspirin [ASPIRIN] AdvReac Mild GI Verified 06/30/18 13:06 TEGADERM Allergy Mild SKIN Uncoded 06/30/18 13:06 REDNESS PAIN CONTRACT Allergy Unknown Uncoded 06/30/18 13:06 Review of Systems Review of Systems ROS Unobtainable: All systems reviewed & are unremarkable except as noted in HPI and below Constitutional Denies chills, Denies fever(s), Denies lethargy and Denies weakness Cardiovascular Denies chest pain, Denies diaphoresis, Denies syncope, Reports rapid heart rate, Denies irregular heart rhythm, Denies lightheadedness, Denies palpitations, Reports dyspnea, Reports dyspnea on exertion and Denies orthopnea Respiratory Denies change in phlegm color, Denies chest congestion, Reports cough, Denies excessive phlegm production, Denies pain on inspiration, Denies pain with cough, Reports dyspnea, Reports dyspnea on exertion, Denies stridor and Reports wheezing Gastrointestinal Gastrointestinal: Denies abdominal pain, Denies change in bowel habits, Denies diarrhea, Denies nausea and Denies vomiting Genitourinary Denies hematuria, Denies dysuria, Denies flank pain, Denies urinary hesitancy and Denies urinary urgency Musculoskeletal Denies back pain Integumentary/Breasts Denies erythema Neurologic Denies syncope and Denies weakness Endocrine Denies palpitations Allergic/Immunologic Reports wheezing [facility] Medical History Pulmonary fibrosis (Suspected) Chronic obstructive pulmonary disease (Chronic 10/29/13) Hypertension (Chronic ~2003) Hyperlipidemia with target LDL less than 100 (Chronic 10/29/13) Menopause present (Chronic 10/29/13) Lumbar back pain (Chronic) Degeneration of intervertebral disc of lumbar region (Chronic 03/23/15) Tobacco use disorder (Chronic 02/24/11) Chronic back pain (Chronic ~1999) Headache (Chronic ~1989) Migraines (Chronic ~1989) Pneumothorax (Chronic ~03/20/17) Surgical History Anesthesia (Resolved) History of hysterectomy, supracervical (Resolved ~2004) Social History household members: spouse Smoking Status: Former smoker Social History household members: spouse Smoking Status: Former smoker Exam Narrative Exam Narrative: GEN: well nourished, well appearing female, alert and oriented x 3, patient appears to be in moderate distress. HEENT: Atraumatic, pupils are equal round reactive to light, extraocular movements are intact, nares are clear. Patient on non-rebreather. HEART: Regular rate and rhythm without murmur, clicks, rubs. No carotid bruits, pulses are equal in upper and lower extremities LUNGS:Lungs mildly decreased patient does have some movement bilaterally. no wheezes, rales, crackles, chest moves symmetrically positive for tachypnea. ABD:bowel sounds normal, soft, non-tender, no guarding, rebound, rigidity, no masses noted, no hepatosplenomegaly MSCL: Non-tender,full range of motion NEURO:CN 2-12 intact, sensation normal Initial Vital Signs Initial Vital Signs: Vital Signs Pulse Rate 92 H 06/30/18 12:54 Respiratory Rate 24 06/30/18 12:54 Blood Pressure 130/79 06/30/18 12:54 Pulse Oximetry 65 L 06/30/18 12:54 Course Orders Ordered: ED Orders 06/30/18 12:45 B Type Natriuretic Peptide Stat Basic Metabolic Panel Stat Complete Blood Count AUTO DIFF Stat D Dimer Stat Magnesium Stat Partial Thromboplastin Time Stat Procalcitonin Stat Prothrombin Time INR Stat Troponin & CK Cardiac Panel Stat 06/30/18 13:06 Consult to Respiratory Therapy Evaluate & Treat EKG-12 Lead Stat 06/30/18 13:07 XR chest 1V Stat 06/30/18 13:15 Arterial Blood Gas Stat 06/30/18 13:36 Lactate (Lactic Acid) Stat 06/30/18 15:06 CT angio chest PE protocol Stat Sodium Chloride (Normal Saline 0.9%) 1,000 mls @ 150 mls/hr IV CONT GLENN Last Admin: 06/30/18 13:19 Dose: 150 mls/hr Discontinued Medications Acetaminophen/Butalbital/Caffeine (Fioricet) 1 each PO NOW ONE Stop: 06/30/18 15:10 Last Admin: 06/30/18 15:24 Dose: 1 each Levalbuterol HCl (Xopenex) 1.25 mg INH NOW ONE Stop: 06/30/18 13:05 Last Admin: 06/30/18 13:05 Dose: 1.25 mg Levalbuterol HCl (Xopenex) 1.25 mg INH NOW ONE Stop: 06/30/18 13:06 Last Admin: 06/30/18 13:05 Dose: 1.25 mg Methylprednisolone (Solu-Medrol 125 Mg Vial) 125 mg IV NOW ONE Stop: 06/30/18 13:06 Last Admin: 06/30/18 13:19 Dose: 125 mg Vital Signs - 8 hr 06/30/18 12:54 06/30/18 13:06 06/30/18 13:26 Pulse Rate 92 H 89 88 Respiratory Rate 24 22 24 Blood Pressure 130/79 Blood Pressure [Right Arm] 124/80 Pulse Oximetry 65 L 87 L 90 L 06/30/18 14:06 06/30/18 14:30 06/30/18 15:00 Pulse Rate 87 84 82 Respiratory Rate 16 30 H 22 Blood Pressure Blood Pressure [Right Arm] 116/71 115/68 114/65 Pulse Oximetry 91 89 L 93 06/30/18 15:19 06/30/18 15:59 06/30/18 16:03 Pulse Rate 83 Respiratory Rate Blood Pressure Blood Pressure [Right Arm] 114/65 Pulse Oximetry 90 L 83 L 86 L 06/30/18 16:34 Pulse Rate 90 Respiratory Rate 26 H Blood Pressure Blood Pressure [Right Arm] Pulse Oximetry 93 MDM - URI/Sore Throat Lab Data Attestation: I reviewed the patient's lab results. Result diagrams: 06/30/18 12:45 06/30/18 12:45 Lab Results 06/30/18 06/30/18 06/30/18 Range/Units 12:45 12:45 12:45 WBC 13.6 H (4.5-11.0) X10^3/uL RBC 3.92 L (4.0-5.2) X10^6/uL Hgb 13.4 (12.0-16.0) g/dL Hct 40.0 (36-46) % MCV 102.0 H (80-100) fL MCH 34.3 H (26-34) PG MCHC 33.6 (30-36) % RDW 13.4 (11.6-14.8) % Plt Count 231 (150-400) X10^3/uL Neut % (Auto) 87.6 H (50-75) % Lymph % (Auto) 5.7 L (25-40) % [place] % (Auto) 4.7 (3-14) % Eos % (Auto) 1.6 L (2-4) % Baso % (Auto) 0.4 (0-2) % Neut # (Auto) 46458 H (1107-6451) /uL Lymph # (Auto) 800 L (0255-2660) /uL [place] # (Auto) 600 (0-900) /uL Eos # (Auto) 200 (0-450) /uL Baso # (Auto) 100 (0-100) /uL PT 11.5 (10.1-12.7) SECONDS INR 1.0 (0.9-1.3) APTT 27 (26.4-36.2) SECONDS D-Dimer 845 H (<230) ng/mL ABG pH (7.35-7.45) ABG pCO2 (35-45) mmHg ABG pO2 (80-100) mmHg ABG HCO3 (22-26) mmol/L ABG Total CO2 (21-31) mmol/L ABG O2 Saturation (95-100) % ABG Base Excess (-2-2) mmol/L FiO2 Sodium 133 L (137-145) mmol/L Potassium 4.7 (3.4-5.1) mmol/L Chloride 95 L (98-107) mmol/L Carbon Dioxide 27 (22-32) mmol/L BUN 12 (7-17) mg/dL Creatinine 0.70 (0.52-1.04) mg/dL Estimated GFR > 60.0 (>60) mL/min BUN/Creatinine Ratio 17.1 (6-22) Glucose 117 H (80-110) mg/dL Lactate (0.7-2.1) mmol/L Calcium 8.9 (8.4-10.2) mg/dL Magnesium 1.9 (1.6-2.3) mg/dL Total Creatine Kinase 26 L (30-135) U/L CK-MB (CK-2) TNP CK-MB (CK-2) Rel Index TNP Troponin I < 0.012 (0.01-0.034) ng/mL B-Natriuretic Peptide 110 H (<100) Procalcitonin (<0.5) ng/mL 06/30/18 06/30/18 06/30/18 Range/Units 12:45 13:15 13:36 WBC (4.5-11.0) X10^3/uL RBC (4.0-5.2) X10^6/uL Hgb (12.0-16.0) g/dL Hct (36-46) % MCV (80-100) fL MCH (26-34) PG MCHC (30-36) % RDW (11.6-14.8) % Plt Count (150-400) X10^3/uL Neut % (Auto) (50-75) % Lymph % (Auto) (25-40) % [place] % (Auto) (3-14) % Eos % (Auto) (2-4) % Baso % (Auto) (0-2) % Neut # (Auto) (2755-9404) /uL Lymph # (Auto) (8484-9712) /uL [place] # (Auto) (0-900) /uL Eos # (Auto) (0-450) /uL Baso # (Auto) (0-100) /uL PT (10.1-12.7) SECONDS INR (0.9-1.3) APTT (26.4-36.2) SECONDS D-Dimer (<230) ng/mL ABG pH 7.41 (7.35-7.45) ABG pCO2 36.7 (35-45) mmHg ABG pO2 74 L (80-100) mmHg ABG HCO3 24 (22-26) mmol/L ABG Total CO2 25 (21-31) mmol/L ABG O2 Saturation 95 (95-100) % ABG Base Excess -1.0 (-2-2) mmol/L FiO2 44 Sodium (137-145) mmol/L Potassium (3.4-5.1) mmol/L Chloride (98-107) mmol/L Carbon Dioxide (22-32) mmol/L BUN (7-17) mg/dL Creatinine (0.52-1.04) mg/dL Estimated GFR (>60) mL/min BUN/Creatinine Ratio (6-22) Glucose (80-110) mg/dL Lactate 1.3 (0.7-2.1) mmol/L Calcium (8.4-10.2) mg/dL Magnesium (1.6-2.3) mg/dL Total Creatine Kinase (30-135) U/L CK-MB (CK-2) CK-MB (CK-2) Rel Index Troponin I (0.01-0.034) ng/mL B-Natriuretic Peptide (<100) Procalcitonin 0.18 (<0.5) ng/mL Imaging Data Chest x-ray: Radiologist's impression: Corina Thompson 63 F 1955 [place] [address] XRay Report Signed Patient: Corina Thompson JMR#: [id number] : [id number]:[id number] Age/Sex: 63 / FDate of Service: 06/30/18 Loc: ED Accession Number: [id number] Procedure: XR chest 1V Ordering Provider: Chantell Pavon D.O. PROCEDURE: XR CHEST 1V INDICATIONS: sob, recent pna 1/5 weeks ago, copd TECHNIQUE: One view of the chest was acquired. COMPARISON: None. FINDINGS: Surgical changes and devices: None. Lungs and pleura: Interval worsening of diffuse ill-defined consolidative opacities throughout the bilateral hemithoraces with left greater than right pleural effusions. Underlying coarse interstitial markings as before. No pneumothorax. Mediastinum: Mediastinal contours appear normal. Heart size is normal. Bones and chest wall: No suspicious bony lesions. Overlying soft tissues appear unremarkable. IMPRESSION: Interval progression of diffuse, ill-defined consolidative opacities worse on the left with associated coarsened interstitial markings and loss of vascular distinctness. There are bilateral pleural effusions. Findings may represent progression of multifocal pneumonia versus worsening pulmonary edema. Underlying changes of chronic obstructive pulmonary physiology. Dictated by: Lex Haji M.D. on 06/30/2018 at 14:06 Approved by: Lex Haji M.D. on 06/30/2018 at 14:08 CT scan - chest: Radiologist's impression: María Elena Pavon, DO Find Patient Imaging JayCorina Mccartney 63 F 1955 ACTIVITY DATE EXAM STATUS AUTHOR 06/30/18 15:06 Signed Lex Haji 06/30/18 13:07 [address] [place] [id number] Scan Report Signed Patient: Corina Thompson JMR#: [id number] : [id number]:[id number] Age/Sex: 63 / FDate of Service: 06/30/18 Loc: ED Accession Number: [id number] Procedure: CT angio chest PE protocol Ordering Provider: Chantell Pavon D.O. PROCEDURE: CT ANGIO CHEST PE PROTOCOL INDICATIONS: worsening sob, ? worsening pna, edema vs pe TECHNIQUE: After the administration of intravenous contrast, 2 mm thick sections acquired from the pulmonary apices to the posterior costophrenic angles. 3-dimensional maximum intensity projection (MIP) coronal and sagittal reformats were then acquired through the thorax. For radiation dose reduction, the following was used: automated exposure control, adjustment of mA and/or kV according to patient size. COMPARISON: None. FINDINGS: Image quality: Excellent. Pulmonary arteries: Pulmonary arteries are normal in size, and demonstrate no intraluminal filling defects to suggest central pulmonary embolism. Mild enlargement of the main pulmonary artery likely sequela of chronic pulmonary arterial hypertension. No CT evidence for acute right-sided heart strain. Lungs and pleura: No pneumothorax or pleural effusion. Stable to slight interval decrease in degree of diffuse ground glass opacities involving the bilateral hemithoraces. A lower lung predominance is again noted. Findings are superimposed on diffuse reticular opacities and subpleural scarring likely related to underlying interstitial lung disease, chronic. No focal consolidation. Central and peripheral airways are patent. Mediastinum: Heart size is normal, without pericardial effusion. Numerous persistent prominent mediastinal lymph nodes. These are more notable for number rather than size and likely reactive. No hilar or axillary adenopathy. Thoracic aorta is normal in caliber and enhancement. Esophagus is normal in caliber, with a small hiatal hernia. Bones and chest wall: No suspicious bony lesions. Ribs and thoracic spine appear intact throughout. Thyroid gland is unremarkable. No axillary or supraclavicular adenopathy. Abdomen: Visualized upper abdominal solid organs appear normal in the early arterial phase of enhancement. IMPRESSION: 1. No acute pulmonary emboli identified. 2. Mild enlargement of the main pulmonary artery likely related to chronic pulmonary arterial hypertension given no evidence for acute right-sided heart strain and superimposed chronic, underlying interstitial lung disease. 3. Stable to slightly improvement in diffuse, lower lung predominant bilateral groundglass opacities which again likely represents an infectious process versus noncardiogenic pulmonary edema. Infection is favored given persistent reactive mediastinal lymph nodes. Pulmonary hemorrhage may have a similar appearance as does hypersensitivity pneumonitis. Dictated by: Lex Haji M.D. on 06/30/2018 at 16:17 Approved by: Lex Haji M.D. on 06/30/2018 at 16:37 ECG Data Attestation: I personally reviewed and interpreted this ECG as follows: Interpretation: Sinus rhythm rate 85 NM 142 QRS 91 QTC of 374. No ST elevation or depression noted. MDM Narrative Medical decision making narrative: Patient's chest x-ray shows worsening opacities on the left that have progressed from her last chest x-ray. Patient's BNP is not worse, her D-dimer is elevated in the 100 range., she has a slight elevation in white count her ABG shows a fairly normal CO2 and bicarb but she is low and PaO2 74 on higher amount of oxygen than she normally requires. Plan for PE study. Patient did respond increased O2, she was given 2 Xopenex. She is complaining of headaches given Fioricet in department. CTA shows no pulmonary embolism. CT does show some mild enlargement of the main pulmonary artery like and bleed secondary to chronic pulmonary arterial hypertension. No evidence of right-sided heart strain, patient has stable to slightly improved diffuse lower lung bilateral ground-glass opacities like really representing infectious versus noncardiogenic pulmonary edema, pneumonitis vs possible pulmonary hemorrhage. infection is favored based on persistent reactive lymph nodes. Pulmonary hemorrhage could have a similar appearance as hypersensitivity pneumonitis also. Patient's procalcitonin is normal. BNP is not particularly elevated at 1:10 a.m.. Lactate is normal patient has some mild electrolyte abnormalities. I discussed with the patient and Dr. Pang who is covering her primary care service. He feels she would benefit from some place with pulmonology and possibly Infectious Disease. I agree. Spoke with patient she is willing to transfer. I spoke with Dr. Stuart, hospitalist through [facility], she accepts for transfer. We did discuss patient's labs, imaging as well as her oxygenation status. She does not seem to be in any hypercapnic respiratory failure. Her oxygen does bounce around pretty easily she has been maintaining typically high 80s to 90 range but she can drop down to the low 80s easily if she is transferred for CT scan or moves around a little bit. Were able to titrate her oxygen she has been requiring max 6 L so far during her stay. Patient does state her breathing does seem improved. She is requesting some humidified oxygen and she feels a little bit dry. Patient signed out to Dr. Ramirez while pending ambulance transport to [place]. Discharge Plan Departure Patient Disposition: General Acute Hospital Clinical Impression: Acute on chronic respiratory failure with hypoxia, Ground glass opacity present on imaging of lung Prescriptions: No Action atenolol 50 mg tablet 50 mg PO DAILY Qty: 90 RF: 3 ipratropium bromide 17 mcg/actuation HFA aerosol inhaler 1 puff INHALATION QID PRN (Reason: shortness of breath or wheezing) Qty: 38.7 RF: 5 bupropion HCl 100 mg tablet 100 mg PO BID Qty: 180 RF: 3 hydrocodone-acetaminophen 7.5-325 mg tablet 0.5 - 1 tab PO Q8H PRN (Reason: Back Pain) Qty: 75 RF: 0 amlodipine [Norvasc] 5 mg tablet 5 mg PO DAILY RF: 0 estrogens-methyltestosterone [Covaryx H.S.] 0.625-1.25 mg tablet 1 tab PO DAILY RF: 0 acetaminophen 325 mg Tablet 1 dose PO PRN PRN (Reason: Fever Or Pain) RF: 0 prednisone 5 mg tablet 5 mg PO DAILY Qty: 120 RF: 0 Referrals: Prasad Pang MD [Primary Care Provider] -
--- NOTE | 2018-06-30 13:18 | ED_ITS ---
HPI - URI/Sore Throat General Chief Complaint: Upper Respiratory Symptoms Stated Complaint: SOB with exertion Time Seen by Provider: 06/30/18 13:04 Source: patient and EMS Mode of arrival: EMS Limitations: no limitations History of Present Illness HPI Narrative: This is a 63-year-old female comes in with increasing shortness of breath. Patient was seen here about a week and half ago admitted with pneumonia and COPD. Patient states she was discharged, she has some increasing shortness of breath this, she has been scheduled to see pulmonology but has not seen yet. It is unclear if this was truly a pneumonia versus other cause or she has some other sort of interstitial or pulmonary fibrotic type cause of her breathing issues. Today she tried to lay down to take a nap and when she got up she felt very short of breath. She states she has been watching her pulse ox at home she is supposed to be around 88 on 3 L but she has been dipping down significantly. She has some medication at home including inhalers and is slowly being weaned down on prednisone. She is at 40 mg for 5 days at this time. She has not had any fevers she is aware of. She has had a cough with productive sputum that is yellow clear, she states this may be a bit increased from when she was discharged. She denies any chest pain. She states her lungs feel tight at the bases. She denies any nausea or vomiting. she denies any diarrhea or constipation. No urinary symptoms. Related Data Home Medications Medication Instructions Recorded Confirmed acetaminophen 1 dose PO PRN PRN 06/11/18 06/26/18 amlodipine [Norvasc] 5 mg PO DAILY 06/11/18 06/26/18 estrogens-methyltestosterone 1 tab PO DAILY 06/11/18 06/26/18 [Covaryx H.S.] Previous Rx's Medication Instructions Recorded atenolol 50 mg tablet 50 mg PO DAILY #90 tab 08/24/17 ipratropium bromide 17 1 puff INHALATION QID PRN #38.7 08/24/17 mcg/actuation HFA aerosol inhaler gram bupropion HCl 100 mg tablet 100 mg PO BID #180 tab 01/23/18 prednisone 5 mg PO DAILY #120 tab 06/17/18 hydrocodone 7.5 mg-acetaminophen 0.5 - 1 tab PO Q8H PRN #75 tab 06/26/18 325 mg tablet Allergies Allergy/AdvReac Type Severity Reaction Status Date / Time Penicillins [PENICILLINS] Allergy Unknown Verified 06/30/18 13:06 aspirin [ASPIRIN] AdvReac Mild GI Verified 06/30/18 13:06 TEGADERM Allergy Mild SKIN Uncoded 06/30/18 13:06 REDNESS PAIN CONTRACT Allergy Unknown Uncoded 06/30/18 13:06 Review of Systems Review of Systems ROS Unobtainable: All systems reviewed & are unremarkable except as noted in HPI and below Constitutional Denies chills, Denies fever(s), Denies lethargy and Denies weakness Cardiovascular Denies chest pain, Denies diaphoresis, Denies syncope, Reports rapid heart rate, Denies irregular heart rhythm, Denies lightheadedness, Denies palpitations, Reports dyspnea, Reports dyspnea on exertion and Denies orthopnea Respiratory Denies change in phlegm color, Denies chest congestion, Reports cough, Denies excessive phlegm production, Denies pain on inspiration, Denies pain with cough, Reports dyspnea, Reports dyspnea on exertion, Denies stridor and Reports wh eezing Gastrointestinal Gastrointestinal: Denies abdominal pain, Denies change in bowel habits, Denies diarrhea, Denies nausea and Denies vomiting Genitourinary Denies hematuria, Denies dysuria, Denies flank pain, Denies urinary hesitancy and Denies urinary urgency Musculoskeletal Denies back pain Integumentary/Breasts Denies erythema Neurologic Denies syncope and Denies weakness Endocrine Denies palpitations Allergic/Immunologic Reports wheezing PFSH Medical History Pulmonary fibrosis (Suspected) Chronic obstructive pulmonary disease (Chronic 10/29/13) Hypertension (Chronic ~2003) Hyperlipidemia with target LDL less than 100 (Chronic 10/29/13) Menopause present (Chronic 10/29/13) Lumbar back pain (Chronic) Degeneration of intervertebral disc of lumbar region (Chronic 03/23/15) Tobacco use disorder (Chronic 02/24/11) Chronic back pain (Chronic ~1999) Headache (Chronic ~1989) Migraines (Chronic ~1989) Pneumothorax (Chronic ~03/20/17) Surgical History Anesthesia (Resolved) History of hysterectomy, supracervical (Resolved ~2004) Social History household members: spouse Smoking Status: Former smoker Social History household members: spouse Smoking Status: Former smoker Exam Narrative Exam Narrative: GEN: well nourished, well appearing female, alert and oriented x 3, patient appears to be in moderate distress. HEENT: Atraumatic, pupils are equal round reactive to light, extraocular movem ents are intact, nares are clear. Patient on non-rebreather. HEART: Regular rate and rhythm without murmur, clicks, rubs. No carotid bruits, pulses are equal in upper and lower extremities LUNGS:Lungs mildly decreased patient does have some movement bilaterally. no wheezes, rales, crackles, chest moves symmetrically positive for tachypnea. ABD:bowel sounds normal, soft, non-tender, no guarding, rebound, rigidity, no masses noted, no hepatosplenomegaly MSCL: Non-tender,full range of motion NEURO:CN 2-12 intact, sensation normal Initial Vital Signs Initial Vital Signs: Vital Signs Pulse Rate 92 H 06/30/18 12:54 Respiratory Rate 24 06/30/18 12:54 Blood Pressure 130/79 06/30/18 12:54 Pulse Oximetry 65 L 06/30/18 12:54 Course Orders Ordered: ED Orders 06/30/18 12:45 B Type Natriuretic Peptide Stat Basic Metabolic Panel Stat Complete Blood Count AUTO DIFF Stat D Dimer Stat Magnesium Stat Partial Thromboplastin Time Stat Procalcitonin Stat Prothrombin Time INR Stat Troponin & CK Cardiac Panel Stat 06/30/18 13:06 Consult to Respiratory Therapy Evaluate & Treat EKG-12 Lead Stat 06/30/18 13:07 XR chest 1V Stat 06/30/18 13:15 Arterial Blood Gas Stat 06/30/18 13:36 Lactate (Lactic Acid) Stat 06/30/18 15:06 CT angio chest PE protocol Stat Sodium Chloride (Normal Saline 0.9%) 1,000 mls @ 150 mls/hr IV CONT GLENN Last Admin: 06/30/18 13:19 Dose: 150 mls/hr Discontinued Medications Acetaminophen/Butalbital/Caffeine (Fioricet) 1 each PO NOW ONE Stop: 06/30/18 15:10 Last Admin: 06/30/18 15:24 Dose: 1 each Levalbuterol HCl (Xopenex) 1.25 mg INH NOW ONE Stop: 06/30/18 13:05 Last Admin: 06/30/18 13:05 Dose: 1.25 mg Levalbuterol HCl (Xopenex) 1.25 mg INH NOW ONE Stop: 06/30/18 13:06 Last Admin: 06/30/18 13:05 Dose: 1.25 mg Methylprednisolone (Solu-Medrol 125 Mg Vial) 125 mg IV NOW ONE Stop: 06/30/18 13:06 Last Admin: 06/30/18 13:19 Dose: 125 mg Vital Signs - 8 hr 06/30/18 12:54 06/30/18 13:06 06/30/18 13:26 Pulse Rate 92 H 89 88 Respiratory Rate 24 22 24 Blood Pressure 130/79 Blood Pressure [Right Arm] 124/80 Pulse Oximetry 65 L 87 L 90 L 06/30/18 14:06 06/30/18 14:30 06/30/18 15:00 Pulse Rate 87 84 82 Respiratory Rate 16 30 H 22 Blood Pressure Blood Pressure [Right Arm] 116/71 115/68 114/65 Pulse Oximetry 91 89 L 93 06/30/18 15:19 06/30/18 15:59 06/30/18 16:03 Pulse Rate 83 Respiratory Rate Blood Pressure Blood Pressure [Right Arm] 114/65 Pulse Oximetry 90 L 83 L 86 L 06/30/18 16:34 Pulse Rate 90 Respiratory Rate 26 H Blood Pressure Blood Pressure [Right Arm] Pulse Oximetry 93 MDM - URI/Sore Throat Lab Data Attestation: I reviewed the patient's lab results. Result diagrams: 06/30/18 12:45 06/30/18 12:45 Lab Results 06/30/18 06/30/18 06/30/18 Range/Units 12:45 12:45 12:45 WBC 13.6 H (4.5-11.0) X10^3/uL RBC 3.92 L (4.0-5.2) X10^6/uL Hgb 13.4 (12.0-16.0) g/dL Hct 40.0 (36-46) % MCV 102.0 H (80-100) fL MCH 34.3 H (26-34) PG MCHC 33.6 (30-36) % RDW 13.4 (11.6-14.8) % Plt Count 231 (150-400) X10^3/uL Neut % (Auto) 87.6 H (50-75) % Lymph % (Auto) 5.7 L (25-40) % Hitchcock % (Auto) 4.7 (3-14) % Eos % (Auto) 1.6 L (2-4) % Baso % (Auto) 0.4 (0-2) % Neut # (Auto) 06728 H (7289-4453) /uL Lymph # (Auto) 800 L (0066-7280) /uL Hitchcock # (Auto) 600 (0-900) /uL Eos # (Auto) 200 (0-450) /uL Baso # (Auto) 100 (0-100) /uL PT 11.5 (10.1-12.7) SECONDS INR 1.0 (0.9-1.3) APTT 27 (26.4-36.2) SECONDS D-Dimer 845 H (<230) ng/mL ABG pH (7.35-7.45) ABG pCO2 (35-45) mmHg ABG pO2 (80-100) mmHg ABG HCO3 (22-26) mmol/L ABG Total CO2 (21-31) mmol/L ABG O2 Saturation (95-100) % ABG Base Excess (-2-2) mmol/L FiO2 Sodium 133 L (137-145) mmol/L Potassium 4.7 (3.4-5.1) mmol/L Chloride 95 L (98-107) mmol/L Carbon Dioxide 27 (22-32) mmol/L BUN 12 (7-17) mg/dL Creatinine 0.70 (0.52-1.04) mg/dL Estimated GFR > 60.0 (>60) mL/min BUN/Creatinine Ratio 17.1 (6-22) Glucose 117 H (80-110) mg/dL Lactate (0.7-2.1) mmol/L Calcium 8.9 (8.4-10.2) mg/dL Magnesium 1.9 (1.6-2.3) mg/dL Total Creatine Kinase 26 L (30-135) U/L CK-MB (CK-2) TNP CK-MB (CK-2) Rel Index TNP Troponin I < 0.012 (0.01-0.034) ng/mL B-Natriuretic Peptide 110 H (<100) Procalcitonin (<0.5) ng/mL 06/30/18 06/30/18 06/30/18 Range/Units 12:45 13:15 13:36 WBC (4.5-11.0) X10^3/uL RBC (4.0-5.2) X10^6/uL Hgb (12.0-16.0) g/dL Hct (36-46) % MCV (80-100) fL MCH (26-34) PG MCHC (30-36) % RDW (11.6-14.8) % Plt Count (150-400) X10^3/uL Neut % (Auto) (50-75) % Lymph % (Auto) (25-40) % Hitchcock % (Auto) (3-14) % Eos % (Auto) (2-4) % Baso % (Auto) (0-2) % Neut # (Auto) (6848-9211) /uL Lymph # (Auto) (0464-0833) /uL Hitchcock # (Auto) (0-900) /uL Eos # (Auto) (0-450) /uL Baso # (Auto) (0-100) /uL PT (10.1-12.7) SECONDS INR (0.9-1.3) APTT (26.4-36.2) SECONDS D-Dimer (<230) ng/mL ABG pH 7.41 (7.35-7.45) ABG pCO2 36.7 (35-45) mmHg ABG pO2 74 L (80-100) mmHg ABG HCO3 24 (22-26) mmol/L ABG Total CO2 25 (21-31) mmol/L ABG O2 Saturation 95 (95-100) % ABG Base Excess -1.0 (-2-2) mmol/L FiO2 44 Sodium (137-145) mmol/L Potassium (3.4-5.1) mmol/L Chloride (98-107) mmol/L Carbon Dioxide (22-32) mmol/L BUN (7-17) mg/dL Creatinine (0.52-1.04) mg/dL Estimated GFR (>60) mL/min BUN/Creatinine Ratio (6-22) Glucose (80-110) mg/dL Lactate 1.3 (0.7-2.1) mmol/L Calcium (8.4-10.2) mg/dL Magnesium (1.6-2.3) mg/dL Total Creatine Kinase (30-135) U/L CK-MB (CK-2) CK-MB (CK-2) Rel Index Troponin I (0.01-0.034) ng/mL B-Natriuretic Peptide (<100) Procalcitonin 0.18 (<0.5) ng/mL Imaging Data Chest x-ray: Radiologist's impression: Corina Thompson Sherrill 63 F [address] [address] XRay Report Signed Patient: Corina Thompson JMR#: [id number] : [id number]:[id number] Age/Sex: 63 / FDate of Service: 06/30/18 Loc: ED Accession Number: [id number] Procedure: XR chest 1V Ordering Provider: Chantell Pavon D.O. PROCEDURE: XR CHEST 1V INDICATIONS: sob, recent pna 1/5 weeks ago, copd TECHNIQUE: One view of the chest was acquired. COMPARISON: None. FINDINGS: Surgical changes and devices: None. Lungs and pleura: Interval worsening of diffuse ill-defined consolidative opacities throughout the bilateral hemithoraces with left greater than right pleural effusions. Underlying coarse interstitial markings as before. No pneumothorax. Mediastinum: Mediastinal contours appear normal. Heart size is normal. Bones and chest wall: No suspicious bony lesions. Overlying soft tissues appear unremarkable. IMPRESSION: Interval progression of diffuse, ill-defined consolidative opacities worse on the left with associated coarsened interstitial markings and loss of vascular distinctness. There are bilateral pleural effusions. Findings may represent progression of multifocal pneumonia versus worsening pulmonary edema. Underlying changes of chronic obstructive pulmonary physiology. Dictated by: Lex Haji M.D. on 06/30/2018 at 14:06 Approved by: Lxe Haji M.D. on 06/30/2018 at 14:08 CT scan - chest: Radiologist's impression: María Elena Pavon, DO Find Patient Imaging JayCorina 63 F 1955 ACTIVITY DATE EXAM STATUS AUTHOR 06/30/18 15:06 Signed Lex Haji 06/30/18 13:07 [place] [address] CT Scan Report Signed Patient: Corina Thompson JMR#: [id number] : [id number]:[id number] Age/Sex: 63 / FDate of Service: 06/30/18 Loc: ED Accession Number: [id number] Procedure: CT angio chest PE protocol Ordering Provider: Chantell Pavon D.O. PROCEDURE: CT ANGIO CHEST PE PROTOCOL INDICATIONS: worsening sob, ? worsening pna, edema vs pe TECHNIQUE: After the administration of intravenous contrast, 2 mm thick sections acquired from the pulmonary apices to the posterior costophrenic angles. 3-dimensional maximum intensity projection (MIP) coronal and sagittal reformats were then acquired through the thorax. For radiation dose reduction, the following was used: automated exposure control, adjustment of mA and/or kV according to patient size. COMPARISON: None. FINDINGS: Image quality: Excellent. Pulmonary arteries: Pulmonary arteries are normal in size, and demonstrate no intraluminal filling defects to suggest central pulmonary embolism. Mild enlargement of the main pulmonary artery likely sequela of chronic pulmonary arterial hypertension. No CT evidence for acute right-sided heart strain. Lungs and pleura: No pneumothorax or pleural effusion. Stable to slight interval decrease in degree of diffuse ground glass opacities involving the bilateral hemithoraces. A lower lung predominance is again noted. Findings are superimposed on diffuse reticular opacities and subpleural scarring likely related to underlying interstitial lung disease, chronic. No focal consolidation. Central and peripheral airways are patent. Mediastinum: Heart size is normal, without pericardial effusion. Numerous persistent prominent mediastinal lymph nodes. These are more notable for number rather than size and likely reactive. No hilar or axillary adenopathy. Thoracic aorta is normal in caliber and enhancement. Esophagus is normal in caliber, with a small hiatal hernia. Bones and chest wall: No suspicious bony lesions. Ribs and thoracic spine appear intact throughout. Thyroid gland is unremarkable. No axillary or supraclavicular adenopathy. Abdomen: Visualized upper abdominal solid organs appear normal in the early arterial phase of enhancement. IMPRESSION: 1. No acute pulmonary emboli identified. 2. Mild enlargement of the main pulmonary artery likely related to chronic pulmonary arterial hypertension given no evidence for acute right-sided heart strain and superimposed chronic, underlying interstitial lung disease. 3. Stable to slightly improvement in diffuse, lower lung predominant bilateral groundglass opacities which again likely represents an infectious process versus noncardiogenic pulmonary edema. Infection is favored given persistent reactive mediastinal lymph nodes. Pulmonary hemorrhage may have a similar appearance as does hypersensitivity pneumonitis. Dictated by: Lex Haji M.D. on 06/30/2018 at 16:17 Approved by: Lex Haji M.D. on 06/30/2018 at 16:37 ECG Data Attestation: I personally reviewed and interpreted this ECG as follows: Interpretation: Sinus rhythm rate 85 IA 142 QRS 91 QTC of 374. No ST elevation or depression noted. MDM Narrative Medical decision making narrative: Patient's chest x-ray shows worsening opacities on the left that have progressed from her last chest x-ray. Patient's BNP is not worse, her D-dimer is elevated in the 100 range., she has a slight elevation in white count her ABG shows a fairly normal CO2 and bicarb but she is low and PaO2 74 on higher amount of oxygen than she normally requires. Plan for PE study. Patient did respond increased O2, she was given 2 Xopenex. She is complaining of headaches given Fioricet in department. CTA shows no pulmonary embolism. CT does show some mild enlargement of the main pulmonary artery like and bleed secondary to chronic pulmonary arterial hypertension. No evidence of right-sided heart strain, patient has stable to slightly improved diffuse lower lung bilateral ground-glass opacities like really representing infectious versus noncardiogenic pulmonary edema, pneumonitis vs possible pulmonary hemorrhage. infection is favored based on persistent reactive lymph nodes. Pulmonary hemorrhage could have a similar appearance as hypersensitivity pneumonitis also. Patient's procalcitonin is normal. BNP is not particularly elevated at 1:10 a.m.. Lactate is normal patient has some mild electrolyte abnormalities. I discussed with the patient and Dr. Pang who is covering her primary care service. He feels she would benefit from some place with pulmonology and possibly Infectious Disease. I agree. Spoke with patient she is willing to transfer. I spoke with adrien Hernadez ospitalist through [facility], she accepts for transfer. We did discuss patient's labs, imaging as well as her oxygenation status. She does not seem to be in any hypercapnic respiratory failure. Her oxygen does bounce around pretty easily she has been maintaining typically high 80s to 90 range but she can drop down to the low 80s easily if she is transferred for CT scan or moves around a little bit. Were able to titrate her oxygen she has been requiring max 6 L so far during her stay. Patient does state her breathing does seem improved. She is requesting some humidified oxygen and she feels a little bit dry. Patient signed out to Dr. Ramirez while pending ambulance transport to [place]. Discharge Plan Departure Patient Disposition: [facility] Clinical Impression: Acute on chronic respiratory failure with hypoxia, Ground glass opacity present on imaging of lung Prescriptions: No Action atenolol 50 mg tablet 50 mg PO DAILY Qty: 90 RF: 3 ipratropium bromide 17 mcg/actuation HFA aerosol inhaler 1 puff INHALATION QID PRN (Reason: shortness of breath or wheezing) Qty: 38.7 RF: 5 bupropion HCl 100 mg tablet 100 mg PO BID Qty: 180 RF: 3 hydrocodone-acetaminophen 7.5-325 mg tablet 0.5 - 1 tab PO Q8H PRN (Reason: Back Pain) Qty: 75 RF: 0 amlodipine [Norvasc] 5 mg tablet 5 mg PO DAILY RF: 0 estrogens-methyltestosterone [Covaryx H.S.] 0.625-1.25 mg tablet 1 tab PO DAILY RF: 0 acetaminophen 325 mg Tablet 1 dose PO PRN PRN (Reason: Fever Or Pain) RF: 0 prednisone 5 mg tablet 5 mg PO DAILY Qty: 120 RF: 0 Referrals: Prasad Pang MD [Primary Care Provider] -
[2018-06-30] MEDS: methylPREDNISolone 125 MG/2 ML VIAL IV (13:19)
[2018-06-30] MEDS: SODIUM CHLORIDE 0.9% 1,000 ML 150 ML IV (13:19)
[2018-06-30 13:21] LABS: Add Manual Diff / Slide Review NO; Basophils Absolute Auto 100 /uL (0-100); Basophils Percent Auto 0.4 % (0-2); Eosinophils Absolute Auto 200 /uL (0-450); Eosinophils Percent Auto 1.6 % (2-4); Hemoglobin 13.4 g/dL (12.0-16.0); Lymphocytes Absolute Auto 800 /uL (1100-4500); Lymphocytes Percent Auto 5.7 % (25-40); Mean Corpuscular HGB Conc 33.6 % (30-36); Mean Corpuscular Hemoglobin 34.3 PG (26-34); Monocytes Absolute Auto 600 /uL (0-900); Monocytes Percent Auto 4.7 % (3-14); Neutrophils Absolute Auto 11900 /uL (1500-7000); Neutrophils Percent Auto 87.6 % (50-75); Platelet Count 231 X10^3/uL (150-400); Red Blood Cell Count 3.92 X10^6/uL (4.0-5.2); Red Cell Distribution Width 13.4 % (11.6-14.8); White Blood Cell Count 13.6 X10^3/uL (4.5-11.0)
[2018-06-30 13:22] LABS: Prothrombin Time 11.5 SECONDS (10.1-12.7)
[2018-06-30 13:25] LABS: BUN Creatinine Ratio 17.1 (6-22); Blood Urea Nitrogen 12 mg/dL (7-17); Calcium 8.9 mg/dL (8.4-10.2); Carbon Dioxide 27 mmol/L (22-32); Chloride 95 mmol/L (98-107); Creatine Kinase 26 U/L (30-135); D Dimer 845 ng/mL (<230); Estimated Glomerular Filt Rate > 60.0 mL/min (>60); Glucose 117 mg/dL (80-110); HEMOLYSIS 32 (0-50); Magnesium 1.9 mg/dL (1.6-2.3); PTT Partial Thromboplastin Tim 27 SECONDS (26.4-36.2); Potassium 4.7 mmol/L (3.4-5.1); Sodium 133 mmol/L (137-145)
--- NOTE | 2018-06-30 13:27 | PC.NURSE ---
remain alert and awake, spouse at bs. medicated as ordered. skin warm dry pink.
[2018-06-30 13:37] LABS: Troponin I < 0.012 ng/mL (0.01-0.034)
[2018-06-30 13:45] LABS: B Type Natriuretic Peptide 110 (<100)
[2018-06-30 13:47] LABS: PCO2 ABG 36.7 mmHg (35-45); PO2 ABG 74 mmHg (80-100); pH ABG 7.41 (7.35-7.45)
[2018-06-30 13:48] LABS: Fractionated Inspired Oxygen 44; HCO3 ABG 24 mmol/L (22-26); Oxygen Saturation ABG 95 % (95-100); TCO2 ABG 25 mmol/L (21-31)
[2018-06-30 13:53] LABS: Lactate (Lactic Acid) 1.3 mmol/L (0.7-2.1)
[2018-06-30 14:09] LABS: Procalcitonin 0.18 ng/mL (<0.5)
--- NOTE | 2018-06-30 15:06 | DI.CT.S_ITS ---
PROCEDURE: CT ANGIO CHEST PE PROTOCOL INDICATIONS: worsening sob, ? worsening pna, edema vs pe TECHNIQUE: After the administration of intravenous contrast, 2 mm thick sections acquired from the pulmonary apices to the posterior costophrenic angles. 3-dimensional maximum intensity projection (MIP) coronal and sagittal reformats were then acquired through the thorax. For radiation dose reduction, the following was used: automated exposure control, adjustment of mA and/or kV according to patient size. COMPARISON: None. FINDINGS: Image quality: Excellent. Pulmonary arteries: Pulmonary arteries are normal in size, and demonstrate no intraluminal filling defects to suggest central pulmonary embolism. Mild enlargement of the main pulmonary artery likely sequela of chronic pulmonary arterial hypertension. No CT evidence for acute right-sided heart strain. Lungs and pleura: No pneumothorax or pleural effusion. Stable to slight interval decrease in degree of diffuse ground glass opacities involving the bilateral hemithoraces. A lower lung predominance is again noted. Findings are superimposed on diffuse reticular opacities and subpleural scarring likely related to underlying interstitial lung disease, chronic. No focal consolidation. Central and peripheral airways are patent. Mediastinum: Heart size is normal, without pericardial effusion. Numerous persistent prominent mediastinal lymph nodes. These are more notable for number rather than size and likely reactive. No hilar or axillary adenopathy. Thoracic aorta is normal in caliber and enhancement. Esophagus is normal in caliber, with a small hiatal hernia. Bones and chest wall: No suspicious bony lesions. Ribs and thoracic spine appear intact throughout. Thyroid gland is unremarkable. No axillary or supraclavicular adenopathy. Abdomen: Visualized upper abdominal solid organs appear normal in the early arterial phase of enhancement. IMPRESSION: 1. No acute pulmonary emboli identified. 2. Mild enlargement of the main pulmonary artery likely related to chronic pulmonary arterial hypertension given no evidence for acute right-sided heart strain and superimposed chronic, underlying interstitial lung disease. 3. Stable to slightly improvement in diffuse, lower lung predominant bilateral groundglass opacities which again likely represents an infectious process versus noncardiogenic pulmonary edema. Infection is favored given persistent reactive mediastinal lymph nodes. Pulmonary hemorrhage may have a similar appearance as does hypersensitivity pneumonitis. Dictated by: Lex Haji M.D. on 06/30/2018 at 16:17 Approved by: Lex Haji M.D. on 06/30/2018 at 16:37
--- NOTE | 2018-06-30 15:19 | PC.NURSE ---
pt c/o headache, waiting for medications.
[2018-06-30] MEDS: BUTALB/APAP/CAFFEINE 50/325/40 TABLET 1 EACH PO (15:24)
--- NOTE | 2018-06-30 15:56 | RT ---
Patient with a sat of 83% on 6 liter nasal cannula. Refusing to have Heated High Flow Nasal Cannula put on at this time despite explaining the danger of her oxygen level. Patient states that she just wants to eat her sandwich in peace. Explained to her that have a HHFNC on will not disrupt her ability to eat. Patient very verbally aggressive and states that this contract writer is just mad because she is not allowing me to do things on my time frame. Informed patient she has the right to refuse any and all interventions and left the room. MD Pavon informed and states that that is just fine if it is the patient's wish.
--- NOTE | 2018-06-30 20:16 | PC.NURSE ---
Attempting to call report,no answer,continually ringing
--- NOTE | 2018-06-30 20:21 | PC.NURSE ---
attempting to call report x2,no answer,continuous ringing
--- NOTE | 2018-06-30 20:28 | PC.NURSE ---
3rd attempt to call report,no answer after weigh and charge worker transferred me to nurses station
== END 2018-06-30 20:32 | disposition short-term general hospital (02) ==
PROVIDERS: Emergency Provider Emergency Medicine; PCP Internal Medicine
DX: J96.21 Acute and chronic respiratory failure with hypoxia (principal)
CPT/HCPCS: 36415; 36600; 71045; 71275; 80048; 82550; 82805; 83605; 83735; 83880; 84145; 84484; 85025; 85379; 85610; 85730; 93005; 94640; 96361; 96374; 99284; 99285; J2930; J7614; Q9967

== ENCOUNTER 2018-07-21 08:41 | Emergency (ER) | payer BC, SELFPAY ==
[2018-06-11 17:12] VITALS: BMI 25.7
[2018-07-21] VITALS (8 sets, daily range): BP systolic 101–115; BP diastolic 51–81; PULSE 70–88; RESP 19–36; O2SAT 74–100; BMI 24.4
--- NOTE | 2018-07-21 08:56 | ED.SOB ---
HPI - SOB/Dyspnea General Chief Complaint: Shortness of Breath/Dyspnea Stated Complaint: Respiratory Distress Time Seen by Provider: 07/21/18 08:43 Source: patient, EMS and old records reviewed Mode of arrival: EMS Limitations: no limitations History of Present Illness This is a 63-year-old female comes to the emergency department complaining of shortness of breath. Patient was at home states she sort of rolled over and suddenly felt very short of breath. This is similar to other event she has had in the past. She was hypoxic at home per EMS on her concentrator. She does have an oxygen concentrator at home. She has Advair with an inhaler as well as albuterol inhaler. She does not have a nebulizer at home. Patient was seen by myself and transferred to [place] for pneumonia she was hospitalized for a little over a week, finished antibiotics and is currently on prednisone 50 mg. She has follow-up appointment with pulmonology on . She has not had bronchoscopy or any other evaluation. She is being slowly weaned down by 10 mg every 5 days. Patient has not had any fevers, she was doing well at home otherwise not having a lot issues with shortness of breath. Her normal O2 sat is 88-92%., she improved with EMS on their oxygen. She denies any chest pain or pressure, no nausea, no vomiting no other GI or urinary symptoms. No swelling in her lower extremities. Related Data Home Medications Medication Instructions Recorded Confirmed acetaminophen 1 dose PO PRN PRN 06/11/18 07/13/18 amlodipine [Norvasc] 5 mg PO DAILY 06/11/18 07/21/18 estrogens-methyltestosterone 1 tab PO DAILY 06/11/18 07/21/18 [Covaryx H.S.] albuterol sulfate HFA 90 2 puff INHALATION QID PRN 07/13/18 07/13/18 mcg/actuation aerosol inhaler prednisone 20 mg tablet 20 mg PO DAILY tab 07/13/18 07/21/18 hydrocodone-acetaminophen 07/21/18 Previous Rx's Medication Instructions Recorded ipratropium bromide 17 1 puff INHALATION QID PRN #38.7 08/24/17 mcg/actuation HFA aerosol inhaler gram bupropion HCl 100 mg tablet 100 mg PO BID #180 tab 01/23/18 prednisone 5 mg PO DAILY #120 tab 06/17/18 atenolol 50 mg tablet 50 mg PO DAILY #90 tab 07/12/18 fluticasone 100 mcg-salmeterol 50 1 puff INHALATION BID #60 each 07/16/18 mcg/dose blistr powdr for inhalation fluticasone 250 mcg-salmeterol 50 1 inhalation INHALATION BID #60 07/17/18 mcg/dose blistr powdr for each inhalation hydrocodone 7.5 mg-acetaminophen 0.5 - 1 tab PO Q8H PRN #75 tab 07/20/18 325 mg tablet Allergies Allergy/AdvReac Type Severity Reaction Status Date / Time Penicillins [PENICILLINS] Allergy Unknown Verified 07/13/18 12:25 aspirin [ASPIRIN] AdvReac Mild GI Verified 07/13/18 12:25 TEGADERM Allergy Mild SKIN Uncoded 07/13/18 12:25 REDNESS PAIN CONTRACT Allergy Unknown Uncoded 07/13/18 12:25 Review of Systems Review of Systems ROS Unobtainable: All systems reviewed & are unremarkable except as noted in HPI and below Constitutional Denies chills, Denies fever(s), Denies lethargy and Denies weakness Cardiovascular Denies chest pain, Denies chest pain at rest, Denies syncope, Denies edema, Denies lightheadedness, Denies palpitations, Reports dyspnea, Denies dyspnea on exertion and Denies orthopnea Respiratory Denies change in phlegm color, Denies chest congestion, Reports cough, Denies excessive phlegm production, Denies pain on inspiration, Denies pain with cough, Reports dyspnea, Denies dyspnea on exertion and Denies wheezing Gastrointestinal Gastrointestinal: Denies abdominal pain, Denies change in bowel habits, Denies diarrhea, Denies nausea and Denies vomiting Neurologic Denies syncope and Denies weakness Endocrine Denies palpitations Allergic/Immunologic Denies wheezing [facility] Medical History Pulmonary fibrosis (Suspected) Chronic obstructive pulmonary disease (Chronic 10/29/13) Hypertension (Chronic ~2003) Hyperlipidemia with target LDL less than 100 (Chronic 10/29/13) Menopause present (Chronic 10/29/13) Lumbar back pain (Chronic) Degeneration of intervertebral disc of lumbar region (Chronic 03/23/15) Tobacco use disorder (Chronic 02/24/11) Chronic back pain (Chronic ~1999) Headache (Chronic ~1989) Migraines (Chronic ~1989) Pneumothorax (Chronic ~03/20/17) Surgical History Anesthesia (Resolved) History of hysterectomy, supracervical (Resolved ~2004) Social History household members: spouse Smoking Status: Former smoker Social History household members: spouse Smoking Status: Former smoker Exam Narrative Exam Narrative: GENERAL: Alert and oriented x three, well-nourished, well-appearing female in no acute distress. HEENT: Head normocephalic, atraumatic, EOMI, pupils reactive, face symmetric, moist mucous membranes NECK: Supple, full range of motion CARDIOVASCULAR: Regular rate and rhythm without murmurs, rubs or gallops. RESPIRATORY: Breath sounds equal bilaterally, no wheezes, no rhonchi, patient has crackles in bilateral bases which is consistent with prior exams on prior ER visits. No tachypnea or accessory muscle use. ABDOMEN: Soft, nontender. Normoactive bowel sounds all 4 quadrants. No guarding or rebound, rigidity, no mass : No CVA tenderness EXTREMITIES: Normal range of motion, no clubbing or edema. Neurovascularly intact NEUROLOGICAL: Cranial nerves II through XII grossly intact. Moving all extremities SKIN: Warm, dry, no petechiae, no rashes or lesions. Initial Vital Signs Initial Vital Signs: Vital Signs Pulse Rate 88 07/21/18 08:45 Respiratory Rate 26 H 07/21/18 08:45 Pulse Oximetry 74 L 07/21/18 08:45 Course Orders Ordered: Discontinued Medications Aspirin (Aspirin Chew) 324 mg PO NOW ONE Stop: 07/21/18 10:06 Last Admin: 07/21/18 10:23 Dose: 324 mg Heparin Sodium (Porcine) (Heparin) 4,000 unit IV NOW ONE Stop: 07/21/18 10:11 Last Admin: 07/21/18 10:32 Dose: 4,000 unit Sodium Chloride (Normal Saline 0.9%) 1,000 mls @ 150 mls/hr IV CONT GLENN Last Infusion: 07/21/18 14:56 Dose: 0 mls/hr Admin: 07/21/18 09:11 Dose: 150 mls/hr Heparin Sodium/Dextrose (Heparin Drip) 25,000 unit in 500 mls @ 15 mls/hr IV CONT GLENN; Protocol Last Titration: 07/21/18 14:56 Dose: 0 units/kg/hr, 0 mls/hr Admin: 07/21/18 10:35 Dose: 12 units/kg/hr, 15 mls/hr Methylprednisolone (Solu-Medrol 125 Mg Vial) 125 mg IV NOW ONE Stop: 07/21/18 08:56 Last Admin: 07/21/18 09:11 Dose: 125 mg Vital Signs - 8 hr 07/21/18 11:30 07/21/18 12:00 07/21/18 13:00 Pulse Rate 71 77 71 Respiratory Rate 19 36 H 26 H Blood Pressure [Right Arm] 101/66 115/74 106/57 L Pulse Oximetry 100 92 07/21/18 13:30 07/21/18 14:30 Pulse Rate 70 72 Respiratory Rate 36 H 21 Blood Pressure [Right Arm] 114/81 109/57 L Pulse Oximetry 94 MDM - SOB/Dyspnea Lab Data Attestation: I reviewed the patient's lab results. Result diagrams: 07/21/18 09:30 07/21/18 09:30 Lab Results 07/21/18 07/21/18 07/21/18 Range/Units 09:20 09:30 09:30 WBC 18.5 H (4.5-11.0) X10^3/uL RBC 3.80 L (4.0-5.2) X10^6/uL Hgb 12.5 (12.0-16.0) g/dL Hct 37.9 (36-46) % MCV 99.9 (80-100) fL MCH 32.9 (26-34) PG MCHC 33.0 (30-36) % RDW 13.5 (11.6-14.8) % Plt Count 234 (150-400) X10^3/uL Neut % (Auto) 83.8 H (50-75) % Lymph % (Auto) 7.6 L (25-40) % [place] % (Auto) 5.6 (3-14) % Eos % (Auto) 2.6 (2-4) % Baso % (Auto) 0.4 (0-2) % Neut # (Auto) 07792 H (1646-5425) /uL Lymph # (Auto) 1400 (5591-5547) /uL [place] # (Auto) 1000 H (0-900) /uL Eos # (Auto) 500 H (0-450) /uL Baso # (Auto) 100 (0-100) /uL PT 11.1 (10.1-12.7) SECONDS INR 1.0 (0.9-1.3) APTT 27 (26.4-36.2) SECONDS ABG pH 7.39 (7.35-7.45) ABG pCO2 40.4 (35-45) mmHg ABG pO2 65 L (80-100) mmHg ABG HCO3 25 (22-26) mmol/L ABG Total CO2 26 (21-31) mmol/L ABG O2 Saturation 92 L (95-100) % ABG Base Excess 0.0 (-2-2) mmol/L FiO2 44 Sodium (137-145) mmol/L Potassium (3.4-5.1) mmol/L Chloride (98-107) mmol/L Carbon Dioxide (22-32) mmol/L BUN (7-17) mg/dL Creatinine (0.52-1.04) mg/dL Estimated GFR (>60) mL/min BUN/Creatinine Ratio (6-22) Glucose (80-110) mg/dL Lactate (0.7-2.1) mmol/L Calcium (8.4-10.2) mg/dL Magnesium (1.6-2.3) mg/dL Total Bilirubin (0.2-1.3) mg/dL AST (14-36) IU/L ALT (9-52) IU/L Alkaline Phosphatase (38-126) U/L Total Creatine Kinase (30-135) U/L CK-MB (CK-2) CK-MB (CK-2) Rel Index Troponin I (0.01-0.034) ng/mL B-Natriuretic Peptide < 100 (<100) Total Protein (6.3-8.2) g/dL Albumin (3.5-5.0) g/dL Globulin (1.7-4.1) g/dL Albumin/Globulin Ratio (1.0-2.8) Procalcitonin (<0.5) ng/mL 07/21/18 07/21/18 07/21/18 Range/Units 09:30 09:30 09:30 WBC (4.5-11.0) X10^3/uL RBC (4.0-5.2) X10^6/uL Hgb (12.0-16.0) g/dL Hct (36-46) % MCV (80-100) fL MCH (26-34) PG MCHC (30-36) % RDW (11.6-14.8) % Plt Count (150-400) X10^3/uL Neut % (Auto) (50-75) % Lymph % (Auto) (25-40) % [place] % (Auto) (3-14) % Eos % (Auto) (2-4) % Baso % (Auto) (0-2) % Neut # (Auto) (5131-6652) /uL Lymph # (Auto) (3384-3999) /uL [place] # (Auto) (0-900) /uL Eos # (Auto) (0-450) /uL Baso # (Auto) (0-100) /uL PT (10.1-12.7) SECONDS INR (0.9-1.3) APTT (26.4-36.2) SECONDS ABG pH (7.35-7.45) ABG pCO2 (35-45) mmHg ABG pO2 (80-100) mmHg ABG HCO3 (22-26) mmol/L ABG Total CO2 (21-31) mmol/L ABG O2 Saturation (95-100) % ABG Base Excess (-2-2) mmol/L FiO2 Sodium 136 L (137-145) mmol/L Potassium 4.2 (3.4-5.1) mmol/L Chloride 99 (98-107) mmol/L Carbon Dioxide 27 (22-32) mmol/L BUN 12 (7-17) mg/dL Creatinine 0.60 (0.52-1.04) mg/dL Estimated GFR > 60.0 (>60) mL/min BUN/Creatinine Ratio 20.0 (6-22) Glucose 115 H (80-110) mg/dL Lactate 1.7 (0.7-2.1) mmol/L Calcium 9.0 (8.4-10.2) mg/dL Magnesium 1.7 (1.6-2.3) mg/dL Total Bilirubin 0.5 (0.2-1.3) mg/dL AST 30 (14-36) IU/L ALT 38 (9-52) IU/L Alkaline Phosphatase 71 (38-126) U/L Total Creatine Kinase 23 L (30-135) U/L CK-MB (CK-2) TNP CK-MB (CK-2) Rel Index TNP Troponin I 0.352 H* (0.01-0.034) ng/mL B-Natriuretic Peptide (<100) Total Protein 7.0 (6.3-8.2) g/dL Albumin 3.7 (3.5-5.0) g/dL Globulin 3.3 (1.7-4.1) g/dL Albumin/Globulin Ratio 1.1 (1.0-2.8) Procalcitonin < 0.05 (<0.5) ng/mL ABG Data ABG results: Patient 7.39, pCO2 of 40, PaO2 65 bicarb 25 with an O2 sat of 92. FiO2 is 44% Attestation: I personally reviewed and interpreted this ABG as follows: Interpretation: Patient's ABG is normal except for PaO2 is 65, she is on 6 L O2. Patient has hypoxic changes but no other changes, no hypercapneic respiratory failure. Imaging Data Chest x-ray: Radiologist's impression: Corina Thompson 63 F [address] [address] XRay Report Signed Patient: Corina Thompson R#: [id number] : [id number]:[id number] Age/Sex: 63 / FDate of Service: 07/21/18 Loc: ED Accession Number: [id number] Procedure: XR chest 1V Ordering Provider: Chantell Pavon D.O. PROCEDURE: XR CHEST 1V INDICATIONS: Short of breath TECHNIQUE: One view of the chest was acquired. COMPARISON: [facility], CT, CT ANGIO CHEST PE PROTOCOL, 06/30/2018, 15:23. [facility], CT, CT ANGIO CHEST PE PROTOCOL, 06/11/2018, 14:50. [facility], CR, XR CHEST 1V, 06/11/2018, 12:42. [facility], CR, XR CHEST 1V, 06/30/2018, 13:21. FINDINGS: Surgical changes and devices: None. Lungs and pleura: Emphysematous changes are seen. Interstitial prominence is seen. Low lung volumes are noted. This causes a crowded appearance to the lung markings and limits evaluation. No pneumothorax or pleural effusions are seen. Mediastinum: Mediastinal contours appear normal. Heart size is mildly enlarged. Bones and chest wall: No suspicious bony lesions. Age-appropriate bony degenerative changes are seen. Overlying soft tissues appear unremarkable. IMPRESSION: Cardiomegaly and interstitial prominence. Please correlate with patient presentation, physical examination findings, and laboratory values for congestive heart failure. Dictated by: Israel Saravia M.D. on 07/21/2018 at 8:32 Approved by: Israel Saravia M.D. on 07/21/2018 at 8:35 CTA chest: Radiologist's impression: [place] [address] CT Scan Report Signed Patient: Corina Thompson R#: [id number] : 7Acct:[id number] Age/Sex: 63 / FDate of Service: 07/21/18 Loc: ED Accession Number: [id number] Procedure: CT angio chest PE protocol Ordering Provider: Chantell Pavon D.O. PROCEDURE: CT ANGIO CHEST PE PROTOCOL INDICATIONS: sob, elevated troponin TECHNIQUE: After the administration of intravenous contrast, 2 mm thick sections acquired from the pulmonary apices to the posterior costophrenic angles. 3-dimensional maximum intensity projection (MIP) coronal and sagittal reformats were then acquired through the thorax. For radiation dose reduction, the following was used: automated exposure control, adjustment of mA and/or kV according to patient size. COMPARISON: [facility], CT, THORAX WITH CONTRAST, 08/05/2008, 15:12. [facility], CR, XR CHEST 1V, 07/21/2018, 9:01. [facility], CR, XR CHEST 1V, 06/30/2018, 13:21. [facility], CR, XR CHEST 1V, 06/11/2018, 12:42. [facility], CT, CT ANGIO CHEST PE PROTOCOL, 06/11/2018, 14:50. [facility], CT, CT ANGIO CHEST PE PROTOCOL, 06/30/2018, 15:23. FINDINGS: Image quality: Excellent. Pulmonary arteries: Pulmonary arteries are normal in size, and demonstrate no intraluminal filling defects to suggest central pulmonary embolism. Lungs and pleura: Prominent subpleural fibrosis can be seen. Groundglass opacity can be seen throughout the lungs, which is similar to the prior examination. No definite superimposed focal infiltrates are seen. No pneumothorax or pleural effusions are seen. The central airways are patent. Mediastinum: Heart size is normal, without pericardial effusion. Stable mildly enlarged mediastinal lymph nodes are seen. Thoracic aorta is normal in caliber and enhancement. Esophagus is normal in caliber. There is a small hiatal hernia. Bones and chest wall: No suspicious bony lesions. Ribs and thoracic spine appear intact throughout. Age-appropriate bony degenerative changes are seen. Thyroid gland demonstrates no significant CT abnormality. No axillary or supraclavicular adenopathy. Abdomen: Visualized upper abdominal solid organs appear normal in the early arterial phase of enhancement. IMPRESSION: Negative for pulmonary embolism. Groundglass opacity can be seen throughout, which is attributed to pulmonary edema. Stable mildly enlarged mediastinal lymph nodes are seen, which are felt most likely to be reactive in nature. Subpleural fibrosis is seen. Incidental note is made of: Small hiatal hernia Dictated by: Israel Saravia M.D. on 07/21/2018 at 9:51 Approved by: Israel Saravia M.D. on 07/21/2018 at 9:55 ECG Data Attestation: I personally reviewed and interpreted this ECG as follows: Prior ECG tracings: available for review Interpretation: Sinus rhythm with a ventricular rate of 77 P are 148 QRS 85 and QTC of 363. Similar to 06/30/18. [facility] Narrative Medical decision making narrative: Patient's EKG appears similar to prior her story is consistent with priors and her ABG is also consistent with prior. Patient's lab work shows an elevation of troponin. She has had CT angiography for PE in the past but will send back to rule out PE as she has had a prolonged hospitalization although this could be more cardiac in nature. Aspirin 324 mg was ordered. Heparin bolus and gtt were started. Patient is asymptomatic. CT angiography was ordered patient has had several negative in the past but with her new change with her heart enzymes being elevated although she does not have right heart strain she was recently hospitalized for 10 days. On her EKG CTA is negative. Discussed with patient I would like to send her some place with Cardiology based on her elevated troponin. [facility] Spoke with them and you job, spoke with Dr. Torres from Cardiology he would plan to cath the patient potentially on Monday. Suspect a type 2 MT but feels patient would probably benefit from angiography. Aspirin at this point, patient is on heparin drip. She has had 1 additional desat down into the 70s when she got up to use the toilet and then back onto the toilet. He states he will decide about Plavix when the patient arrives. [facility] has beds at . Spoke with Dr. Fatima, plan for transfer to [facility] in [place]. Patient updated on plan to go to , comfortable with plan. She is feeling comfortable at this time. Critical Care Time Critical Care Time: Yes Total Critical Care Time: 85 Attestation: The high probability of a clinically significant, sudden or life threatening deterioration of the [cardiac, respiratory] system(s) required my full and direct attention, intervention and personal management. The aggregate critical care time was [85] minutes. This time is in addition to time spent performing reported procedures but includes the following: [x] Data Review and interpretation [x] Patient assessment and monitoring of vital signs [x] Documentation [x] Medication orders and management Discharge Plan Departure Patient Disposition: [facility] Clinical Impression: Acute non-ST elevation myocardial infarction (NSTEMI), Respiratory failure, unspecified with hypoxia Discharge Date/Time: 07/21/18 15:16 Interventions: ED Discharge Assessment Last Done: 07/21/18 14:56 Prescriptions: No Action atenolol 50 mg tablet 50 mg PO DAILY Qty: 90 RF: 3 fluticasone propion-salmeterol [Advair Diskus] 100-50 mcg/dose blister with device 1 puff INHALATION BID Qty: 60 RF: 0 fluticasone propion-salmeterol [Advair Diskus] 250-50 mcg/dose blister with device 1 inhalation INHALATION BID Qty: 60 RF: 1 hydrocodone-acetaminophen 7.5-325 mg tablet 0.5 - 1 tab PO Q8H PRN (Reason: Back Pain) Qty: 75 RF: 0 ipratropium bromide 17 mcg/actuation HFA aerosol inhaler 1 puff INHALATION QID PRN (Reason: shortness of breath or wheezing) Qty: 38.7 RF: 5 bupropion HCl 100 mg tablet 100 mg PO BID Qty: 180 RF: 3 albuterol sulfate 90 mcg/actuation HFA aerosol inhaler 2 puff INHALATION QID PRN (Reason: bronchospasm) RF: 0 prednisone 20 mg tablet 20 mg PO DAILY RF: 0 amlodipine [Norvasc] 5 mg tablet 5 mg PO DAILY RF: 0 estrogens-methyltestosterone [Covaryx H.S.] 0.625-1.25 mg tablet 1 tab PO DAILY RF: 0 acetaminophen 325 mg Tablet 1 dose PO PRN PRN (Reason: Fever Or Pain) RF: 0 prednisone 5 mg tablet 5 mg PO DAILY Qty: 120 RF: 0 hydrocodone-acetaminophen 7.5-325 mg tablet RF: 0 Referrals: Prasad Pang MD [Primary Care Provider] -
[2018-07-21] MEDS: SODIUM CHLORIDE 0.9% 1,000 ML 150 ML IV (09:11)
[2018-07-21] MEDS: methylPREDNISolone 125 MG/2 ML VIAL IV (09:11)
[2018-07-21 09:39] LABS: Add Manual Diff / Slide Review NO; Basophils Absolute Auto 100 /uL (0-100); Basophils Percent Auto 0.4 % (0-2); Eosinophils Absolute Auto 500 /uL (0-450); Eosinophils Percent Auto 2.6 % (2-4); Hematocrit 37.9 % (36-46); Hemoglobin 12.5 g/dL (12.0-16.0); Lymphocytes Absolute Auto 1400 /uL (1100-4500); Lymphocytes Percent Auto 7.6 % (25-40); Mean Corpuscular Hemoglobin 32.9 PG (26-34); Mean Corpuscular Volume 99.9 fL (80-100); Monocytes Absolute Auto 1000 /uL (0-900); Monocytes Percent Auto 5.6 % (3-14); Neutrophils Absolute Auto 15500 /uL (1500-7000); Neutrophils Percent Auto 83.8 % (50-75); Platelet Count 234 X10^3/uL (150-400); Red Cell Distribution Width 13.5 % (11.6-14.8); White Blood Cell Count 18.5 X10^3/uL (4.5-11.0)
--- NOTE | 2018-07-21 09:42 | PC.NURSE ---
upon arrival to ER , pt was gasping for air, oxygen at 6lnc. placed pt on 100% NRB. sats increased to 94 %. +Richardson. at bedside.
[2018-07-21 09:43] LABS: HCO3 ABG 25 mmol/L (22-26); Oxygen Saturation ABG 92 % (95-100); PCO2 ABG 40.4 mmHg (35-45); PO2 ABG 65 mmHg (80-100); TCO2 ABG 26 mmol/L (21-31); pH ABG 7.39 (7.35-7.45)
[2018-07-21 09:44] LABS: Prothrombin Time 11.1 SECONDS (10.1-12.7)
[2018-07-21 09:44] LABS: Fractionated Inspired Oxygen 44
[2018-07-21 09:47] LABS: Lactate (Lactic Acid) 1.7 mmol/L (0.7-2.1); PTT Partial Thromboplastin Tim 27 SECONDS (26.4-36.2)
[2018-07-21 09:49] LABS: Alanine Aminotransferase 38 IU/L (9-52); Albumin 3.7 g/dL (3.5-5.0); Albumin Globulin Ratio 1.1 (1.0-2.8); Alkaline Phosphatase 71 U/L (38-126); Aspartate Aminotransferase 30 IU/L (14-36); Bilirubin Total 0.5 mg/dL (0.2-1.3); Blood Urea Nitrogen 12 mg/dL (7-17); Carbon Dioxide 27 mmol/L (22-32); Chloride 99 mmol/L (98-107); Creatine Kinase 23 U/L (30-135); Estimated Glomerular Filt Rate > 60.0 mL/min (>60); Globulin 3.3 g/dL (1.7-4.1); Glucose 115 mg/dL (80-110); HEMOLYSIS < 15 (0-50); Magnesium 1.7 mg/dL (1.6-2.3); Potassium 4.2 mmol/L (3.4-5.1); Sodium 136 mmol/L (137-145)
[2018-07-21 10:04] LABS: Troponin I 0.352 ng/mL (0.01-0.034)
--- NOTE | 2018-07-21 10:05 | ED_ITS ---
HPI - SOB/Dyspnea General Chief Complaint: Shortness of Breath/Dyspnea Stated Complaint: Respiratory Distress Time Seen by Provider: 07/21/18 08:43 Source: patient, EMS and old records reviewed Mode of arrival: EMS Limitations: no limitations History of Present Illness This is a 63-year-old female comes to the emergency department complaining of shortness of breath. Patient was at home states she sort of rolled over and suddenly felt very short of breath. This is similar to other event she has had in the past. She was hypoxic at home per EMS on her concentrator. She does have an oxygen concentrator at home. She has Advair with an inhaler as well as albuterol inhaler. She does not have a nebulizer at home. Patient was seen by myself and transferred to [place] for pneumonia she was hospitalized for a little over a week, finished antibiotics and is currently on prednisone 50 mg. She has follow-up appointment with pulmonology on . She has not had bronchoscopy or any other evaluation. She is being slowly weaned down by 10 mg every 5 days. Patient has not had any fevers, she was doing well at home otherwise not having a lot issues with shortness of breath. Her normal O2 sat is 88-92%., she improved with EMS on their oxygen. She denies any chest pain or pressure, no nausea, no vomiting no other GI or urinary symptoms. No swelling in her lower extremities. Related Data Home Medications Medication Instructions Recorded Confirmed acetaminophen 1 dose PO PRN PRN 06/11/18 07/13/18 amlodipine [Norvasc] 5 mg PO DAILY 06/11/18 07/21/18 estrogens-methyltestosterone 1 tab PO DAILY 06/11/18 07/21/18 [Covaryx H.S.] albuterol sulfate HFA 90 2 puff INHALATION QID PRN 07/13/18 07/13/18 mcg/actuation aerosol inhaler prednisone 20 mg tablet 20 mg PO DAILY tab 07/13/18 07/21/18 hydrocodone-acetaminophen 07/21/18 Previous Rx's Medication Instructions Recorded ipratropium bromide 17 1 puff INHALATION QID PRN #38.7 08/24/17 mcg/actuation HFA aerosol inhaler gram bupropion HCl 100 mg tablet 100 mg PO BID #180 tab 01/23/18 prednisone 5 mg PO DAILY #120 tab 06/17/18 atenolol 50 mg tablet 50 mg PO DAILY #90 tab 07/12/18 fluticasone 100 mcg-salmeterol 50 1 puff INHALATION BID #60 each 07/16/18 mcg/dose blistr powdr for inhalation fluticasone 250 mcg-salmeterol 50 1 inhalation INHALATION BID #60 07/17/18 mcg/dose blistr powdr for each inhalation hydrocodone 7.5 mg-acetaminophen 0.5 - 1 tab PO Q8H PRN #75 tab 07/20/18 325 mg tablet Allergies Allergy/AdvReac Type Severity Reaction Status Date / Time Penicillins [PENICILLINS] Allergy Unknown Verified 07/13/18 12:25 aspirin [ASPIRIN] AdvReac Mild GI Verified 07/13/18 12:25 TEGADERM Allergy Mild SKIN Uncoded 07/13/18 12:25 REDNESS PAIN CONTRACT Allergy Unknown Uncoded 07/13/18 12:25 Review of Systems Review of Systems ROS Unobtainable: All systems reviewed & are unremarkable except as noted in HPI and below Constitutional Denies chills, Denies fever(s), Denies lethargy and Denies weakness Cardiovascular Denies chest pain, Denies chest pain at rest, Denies syncope, Denies edema, Denies lightheadedness, Denies palpitations, Reports dyspnea, Denies dyspnea on exertion and Denies orthopnea Respiratory Denies change in phlegm color, Denies chest congestion, Reports cough, Denies excessive phlegm production, Denies pain on inspiration, Denies pain with cough, Reports dyspnea, Denies dyspnea on exertion and Denies wheezing Gastrointestinal Gastrointestinal: Denies abdominal pain, Denies change in bowel habits, Denies diarrhea, Denies nausea and Denies vomiting Neurologic Denies syncope and Denies weakness Endocrine Denies palpitations Allergic/Immunologic Denies wheezing [facility] Medical History Pulmonary fibrosis (Suspected) Chronic obstructive pulmonary disease (Chronic 10/29/13) Hypertension (Chronic ~2003) Hyperlipidemia with target LDL less than 100 (Chronic 10/29/13) Menopause present (Chronic 10/29/13) Lumbar back pain (Chronic) Degeneration of intervertebral disc of lumbar region (Chronic 03/23/15) Tobacco use disorder (Chronic 02/24/11) Chronic back pain (Chronic ~1999) Headache (Chronic ~1989) Migraines (Chronic ~1989) Pneumothorax (Chronic ~03/20/17) Surgical History Anesthesia (Resolved) History of hysterectomy, supracervical (Resolved ~2004) Social History household members: spouse Smoking Status: Former smoker Social History household members: spouse Smoking Status: Former smoker Exam Narrative Exam Narrative: GENERAL: Alert and oriented x three, well-nourished, well- appearing female in no acute distress. HEENT: Head normocephalic, atraumatic, EOMI, pupils reactive, face symmetric, moist mucous membranes NECK: Supple, full range of motion CARDIOVASCULAR: Regular rate and rhythm without murmurs, rubs or gallops. RESPIRATORY: Breath sounds equal bilaterally, no wheezes, no rhonchi, patient has crackles in bilateral bases which is consistent with prior exams on prior ER visits. No tachypnea or accessory muscle use. ABDOMEN: Soft, nontender. Normoactive bowel sounds all 4 quadrants. No guarding or rebound, rigidity, no mass : No CVA tenderness EXTREMITIES: Normal range of motion, no clubbing or edema. Neurovascularly intact NEUROLOGICAL: Cranial nerves II through XII grossly intact. Moving all extremities SKIN: Warm, dry, no petechiae, no rashes or lesions. Initial Vital Signs Initial Vital Signs: Vital Signs Pulse Rate 88 07/21/18 08:45 Respiratory Rate 26 H 07/21/18 08:45 Pulse Oximetry 74 L 07/21/18 08:45 Course Orders Ordered: Discontinued Medications Aspirin (Aspirin Chew) 324 mg PO NOW ONE Stop: 07/21/18 10:06 Last Admin: 07/21/18 10:23 Dose: 324 mg Heparin Sodium (Porcine) (Heparin) 4,000 unit IV NOW ONE Stop: 07/21/18 10:11 Last Admin: 07/21/18 10:32 Dose: 4,000 unit Sodium Chloride (Normal Saline 0.9%) 1,000 mls @ 150 mls/hr IV CONT GLENN Last Infusion: 07/21/18 14:56 Dose: 0 mls/hr Admin: 07/21/18 09:11 Dose: 150 mls/hr Heparin Sodium/Dextrose (Heparin Drip) 25,000 unit in 500 mls @ 15 mls/hr IV CONT GLENN; Protocol Last Titration: 07/21/18 14:56 Dose: 0 units/kg/hr, 0 mls/hr Admin: 07/21/18 10:35 Dose: 12 units/kg/hr, 15 mls/hr Methylprednisolone (Solu-Medrol 125 Mg Vial) 125 mg IV NOW ONE Stop: 07/21/18 08:56 Last Admin: 07/21/18 09:11 Dose: 125 mg Vital Signs - 8 hr 07/21/18 11:30 07/21/18 12:00 07/21/18 13:00 Pulse Rate 71 77 71 Respiratory Rate 19 36 H 26 H Blood Pressure [Right Arm] 101/66 115/74 106/57 L Pulse Oximetry 100 92 07/21/18 13:30 07/21/18 14:30 Pulse Rate 70 72 Respiratory Rate 36 H 21 Blood Pressure [Right Arm] 114/81 109/57 L Pulse Oximetry 94 MDM - SOB/Dyspnea Lab Data Attestation: I reviewed the patient's lab results. Result diagrams: 07/21/18 09:30 07/21/18 09:30 Lab Results 07/21/18 07/21/18 07/21/18 Range/Units 09:20 09:30 09:30 WBC 18.5 H (4.5-11.0) X10^3/uL RBC 3.80 L (4.0-5.2) X10^6/uL Hgb 12.5 (12.0-16.0) g/dL Hct 37.9 (36-46) % MCV 99.9 (80-100) fL MCH 32.9 (26-34) PG MCHC 33.0 (30-36) % RDW 13.5 (11.6-14.8) % Plt Count 234 (150-400) X10^3/uL Neut % (Auto) 83.8 H (50-75) % Lymph % (Auto) 7.6 L (25-40) % Garvin % (Auto) 5.6 (3-14) % Eos % (Auto) 2.6 (2-4) % Baso % (Auto) 0.4 (0-2) % Neut # (Auto) 64890 H (2003-1571) /uL Lymph # (Auto) 1400 (9392-8567) /uL Garvin # (Auto) 1000 H (0-900) /uL Eos # (Auto) 500 H (0-450) /uL Baso # (Auto) 100 (0-100) /uL PT 11.1 (10.1-12.7) SECONDS INR 1.0 (0.9-1.3) APTT 27 (26.4-36.2) SECONDS ABG pH 7.39 (7.35-7.45) ABG pCO2 40.4 (35-45) mmHg ABG pO2 65 L (80-100) mmHg ABG HCO3 25 (22-26) mmol/L ABG Total CO2 26 (21-31) mmol/L ABG O2 Saturation 92 L (95-100) % ABG Base Excess 0.0 (-2-2) mmol/L FiO2 44 Sodium (137-145) mmol/L Potassium (3.4-5.1) mmol/L Chloride (98-107) mmol/L Carbon Dioxide (22-32) mmol/L BUN (7-17) mg/dL Creatinine (0.52-1.04) mg/dL Estimated GFR (>60) mL/min BUN/Creatinine Ratio (6-22) Glucose (80-110) mg/dL Lactate (0.7-2.1) mmol/L Calcium (8.4-10.2) mg/dL Magnesium (1.6-2.3) mg/dL Total Bilirubin (0.2-1.3) mg/dL AST (14-36) IU/L ALT (9-52) IU/L Alkaline Phosphatase (38-126) U/L Total Creatine Kinase (30-135) U/L CK-MB (CK-2) CK-MB (CK-2) Rel Index Troponin I (0.01-0.034) ng/mL B-Natriuretic Peptide < 100 (<100) Total Protein (6.3-8.2) g/dL Albumin (3.5-5.0) g/dL Globulin (1.7-4.1) g/dL Albumin/Globulin Ratio (1.0-2.8) Procalcitonin (<0.5) ng/mL 07/21/18 07/21/18 07/21/18 Range/Units 09:30 09:30 09:30 WBC (4.5-11.0) X10^3/uL RBC (4.0-5.2) X10^6/uL Hgb (12.0-16.0) g/dL Hct (36-46) % MCV (80-100) fL MCH (26-34) PG MCHC (30-36) % RDW (11.6-14.8) % Plt Count (150-400) X10^3/uL Neut % (Auto) (50-75) % Lymph % (Auto) (25-40) % Garvin % (Auto) (3-14) % Eos % (Auto) (2-4) % Baso % (Auto) (0-2) % Neut # (Auto) (8605-2501) /uL Lymph # (Auto) (8632-7746) /uL Garvin # (Auto) (0-900) /uL Eos # (Auto) (0-450) /uL Baso # (Auto) (0-100) /uL PT (10.1-12.7) SECONDS INR (0.9-1.3) APTT (26.4-36.2) SECONDS ABG pH (7.35-7.45) ABG pCO2 (35-45) mmHg ABG pO2 (80-100) mmHg ABG HCO3 (22-26) mmol/L ABG Total CO2 (21-31) mmol/L ABG O2 Saturation (95-100) % ABG Base Excess (-2-2) mmol/L FiO2 Sodium 136 L (137-145) mmol/L Potassium 4.2 (3.4-5.1) mmol/L Chloride 99 (98-107) mmol/L Carbon Dioxide 27 (22-32) mmol/L BUN 12 (7-17) mg/dL Creatinine 0.60 (0.52-1.04) mg/dL Estimated GFR > 60.0 (>60) mL/min BUN/Creatinine Ratio 20.0 (6-22) Glucose 115 H (80-110) mg/dL Lactate 1.7 (0.7-2.1) mmol/L Calcium 9.0 (8.4-10.2) mg/dL Magnesium 1.7 (1.6-2.3) mg/dL Total Bilirubin 0.5 (0.2-1.3) mg/dL AST 30 (14-36) IU/L ALT 38 (9-52) IU/L Alkaline Phosphatase 71 (38-126) U/L Total Creatine Kinase 23 L (30-135) U/L CK-MB (CK-2) TNP CK-MB (CK-2) Rel Index TNP Troponin I 0.352 H* (0.01-0.034) ng/mL B-Natriuretic Peptide (<100) Total Protein 7.0 (6.3-8.2) g/dL Albumin 3.7 (3.5-5.0) g/dL Globulin 3.3 (1.7-4.1) g/dL Albumin/Globulin Ratio 1.1 (1.0-2.8) Procalcitonin < 0.05 (<0.5) ng/mL ABG Data ABG results: Patient 7.39, pCO2 of 40, PaO2 65 bicarb 25 with an O2 sat of 92. FiO2 is 44% Attestation: I personally reviewed and interpreted this ABG as follows: Interpretation: Patient's ABG is normal except for PaO2 is 65, she is on 6 L O2. Patient has hypoxic changes but no other changes, no hypercapneic respiratory failure. Imaging Data Chest x-ray: Radiologist's impression: Corina Thompson 63 F [address] [address] XRay Report Signed Patient: Corina Thompson R#: [id number] : 1955cct:[id number] Age/Sex: 63 / FDate of Service: 07/21/18 Loc: ED Accession Number: [id number] Procedure: XR chest 1V Ordering Provider: Chantell Pavon D.O. PROCEDURE: XR CHEST 1V INDICATIONS: Short of breath TECHNIQUE: One view of the chest was acquired. COMPARISON: [facility], CT, CT ANGIO CHEST PE PROTOCOL, 06/30/2018, 15:23. [facility], CT, CT ANGIO CHEST PE PROTOCOL, 06/11/2018, 14:50. [facility], CR, XR CHEST 1V, 06/11/2018, 12:42. [facility], CR, XR CHEST 1V, 06/30/2018, 13:21. FINDINGS: Surgical changes and devices: None. Lungs and pleura: Emphysematous changes are seen. Interstitial prominence is seen. Low lung volumes are noted. This causes a crowded appearance to the lung markings and limits evaluation. No pneumothorax or pleural effusions are seen. Mediastinum: Mediastinal contours appear normal. Heart size is mildly enlarged. Bones and chest wall: No suspicious bony lesions. Age-appropriate bony degenerative changes are seen. Overlying soft tissues appear unremarkable. IMPRESSION: Cardiomegaly and interstitial prominence. Please correlate with patient presentation, physical examination findings, and laboratory values for congestive heart failure. Dictated by: Israel Saravia M.D. on 07/21/2018 at 8:32 Approved by: Israel Saravia M.D. on 07/21/2018 at 8:35 CTA chest: Radiologist's impression: [place] [address] CT Scan Report Signed Patient: Corina Thompson R#: [id number] : 7Acct:[id number] Age/Sex: 63 / FDate of Service: 07/21/18 Loc: ED Accession Number: [id number] Procedure: CT angio chest PE protocol Ordering Provider: Chantell Pavon D.O. PROCEDURE: CT ANGIO CHEST PE PROTOCOL INDICATIONS: sob, elevated troponin TECHNIQUE: After the administration of intravenous contrast, 2 mm thick sections acquired from the pulmonary apices to the posterior costophrenic angles. 3-dimensional maximum intensity projection (MIP) coronal and sagittal reformats were then acquired through the thorax. For radiation dose reduction, the following was used: automated exposure c ontrol, adjustment of mA and/or kV according to patient size. COMPARISON: [facility], CT, THORAX WITH CONTRAST, 08/05/2008, 15:12. [facility], CR, XR CHEST 1V, 07/21/2018, 9:01. [facility], CR, XR CHEST 1V, 06/30/2018, 13:21. [facility], CR, XR CHEST 1V, 06/11/2018, 12:42. [facility], CT, CT ANGIO CHEST PE PROTOCOL, 06/11/2018, 14:50. [facility], CT, CT ANGIO CHEST PE PROTOCOL, 06/30/2018, 15:23. FINDINGS: Image quality: Excellent. Pulmonary arteries: Pulmonary arteries are normal in size, and demonstrate no intraluminal filling defects to suggest central pulmonary embolism. Lungs and pleura: Prominent subpleural fibrosis can be seen. Groundglass opacity can be seen throughout the lungs, which is similar to the prior examination. No definite superimposed focal infiltrates are seen. No pneumothorax or pleural effusions are seen. The central airways are patent. Mediastinum: Heart size is normal, without pericardial effusion. Stable mildly enlarged mediastinal lymph nodes are seen. Thoracic aorta is normal in caliber and enhancement. Esophagus is normal in caliber. There is a small hiatal hernia. Bones and chest wall: No suspicious bony lesions. Ribs and thoracic spine appear intact throughout. Age-appropriate bony degenerative changes are seen. Thyroid gland demonstrates no significant CT abnormality. No axillary or supraclavicular adenopathy. Abdomen: Visualized upper abdominal solid organs appear normal in the early arterial phase of enhancement. IMPRESSION: Negative for pulmonary embolism. Groundglass opacity can be seen throughout, which is attributed to pulmonary edema. Stable mildly enlarged mediastinal lymph nodes are seen, which are felt most likely to be reactive in nature. Subpleural fibrosis is seen. Incidental note is made of: Small hiatal hernia Dictated by: Israel Saravia M.D. on 07/21/2018 at 9:51 Approved by: Israel Saravia M.D. on 07/21/2018 at 9:55 ECG Data Attestation: I personally reviewed and interpreted this ECG as follows: Prior ECG tracings: available for review Interpretation: Sinus rhythm with a ventricular rate of 77 P are 148 QRS 85 and QTC of 363. Similar to 06/30/18. [facility] Narrative Medical decision making narrative: Patient's EKG appears similar to prior her story is consistent with priors and her ABG is also consistent with prior. Patient's lab work shows an elevation of troponin. She has had CT angiography for PE in the past but will send back to rule out PE as she has had a prolonged hospitalization although this could be more cardiac in nature. Aspirin 324 mg was ordered. Heparin bolus and gtt were started. Patient is asymptomatic. CT angiography was ordered patient has had several negative in the past but with her new change with her heart enzymes being elevated although she does not have right heart strain she was recently hospitalized for 10 days. On her EKG CTA is negative. Discussed with patient I would like to send her some place with Cardiology based on her elevated troponin. The patient has been requesting [facility]. Spoke with them and you job, spoke with Dr. Torres from Cardiology he would plan to cath the patient potentially on Monday. Suspect a type 2 NM but feels patient would probably benefit from angiography. Aspirin at this point, patient is on heparin drip. She has had 1 additional desat down into the 70s when she got up to use the toilet and then back onto the toilet. He states he will decide about Plavix when the patient arrives. [facility] has beds at . Spoke with Dr. Fatima, plan for transfer to [facility] in [place]. Patient updated on plan to go to , comfortable with plan. She is feeling comfortable at this time. Critical Care Time Critical Care Time: Yes Total Critical Care Time: 85 Attestation: The high probability of a clinically significant, sudden or life threatening deterioration of the [cardiac, respiratory] system(s) required my full and direct attention, intervention and personal management. The aggregate critical care time was [85] minutes. This time is in addition to time spent performing reported procedures but includes the following: [x] Data Review and interpretation [x] Patient assessment and monitoring of vital signs [x] Documentation [x] Medication orders and management Discharge Plan Departure Patient Disposition: [facility] Clinical Impression: Acute non-ST elevation myocardial infarction (NSTEMI), Respiratory failure, unspecified with hypoxia Discharge Date/Time: 07/21/18 15:16 Interventions: ED Discharge Assessment Last Done: 07/21/18 14:56 Prescriptions: No Action atenolol 50 mg tablet 50 mg PO DAILY Qty: 90 RF: 3 fluticasone propion-salmeterol [Advair Diskus] 100-50 mcg/dose blister with device 1 puff INHALATION BID Qty: 60 RF: 0 fluticasone propion-salmeterol [Advair Diskus] 250-50 mcg/dose blister with device 1 inhalation INHALATION BID Qty: 60 RF: 1 hydrocodone-acetaminophen 7.5-325 mg tablet 0.5 - 1 tab PO Q8H PRN (Reason: Back Pain) Qty: 75 RF: 0 ipratropium bromide 17 mcg/actuation HFA aerosol inhaler 1 puff INHALATION QID PRN (Reason: shortness of breath or wheezing) Qty: 38.7 RF: 5 bupropion HCl 100 mg tablet 100 mg PO BID Qty: 180 RF: 3 albuterol sulfate 90 mcg/actuation HFA aerosol inhaler 2 puff INHALATION QID PRN (Reason: bronchospasm) RF: 0 prednisone 20 mg tablet 20 mg PO DAILY RF: 0 amlodipine [Norvasc] 5 mg tablet 5 mg PO DAILY RF: 0 estrogens-methyltestosterone [Covaryx H.S.] 0.625-1.25 mg tablet 1 tab PO DAILY RF: 0 acetaminophen 325 mg Tablet 1 dose PO PRN PRN (Reason: Fever Or Pain) RF: 0 prednisone 5 mg tablet 5 mg PO DAILY Qty: 120 RF: 0 hydrocodone-acetaminophen 7.5-325 mg tablet RF: 0 Referrals: Prasad Pang MD [Primary Care Provider] -
[2018-07-21 10:09] LABS: B Type Natriuretic Peptide < 100 (<100)
[2018-07-21] MEDS: ASPIRIN 81 MG TAB 324 MG PO (10:23)
[2018-07-21 10:24] LABS: Procalcitonin < 0.05 ng/mL (<0.5)
[2018-07-21] MEDS: HEPARIN 5,000 UNIT/ML VIAL 4000 UNIT IV (10:32)
[2018-07-21] MEDS: HEPARIN DRIP 25,000 UNIT/500 ML IV.SOLN 15 UNIT IV (10:35)
--- NOTE | 2018-07-21 12:34 | PC.NURSE ---
Pt up to bedside commode on 5L nasal cannula. Became acutely short of breath again with oxygen sat at 74%. Placed on nonrebreather and oxygen improved to 98%. RT and provider notified.
== END 2018-07-21 15:16 | disposition short-term general hospital (02) ==
PROVIDERS: Emergency Provider Emergency Medicine; PCP Internal Medicine
DX: I21.4 Non-ST elevation (NSTEMI) myocardial infarction (principal); J96.91 Respiratory failure, unspecified with hypoxia
CPT/HCPCS: 36415; 36600; 71045; 71275; 80053; 82550; 82805; 83605; 83735; 83880; 84145; 84484; 85025; 85610; 85730; 93005; 93010; 96361; 96365; 96366; 96375; 96376; 99285; J1644; J2930; Q9967